=== PATIENT | female | born 1955 | race Caucasian/White ===

== ENCOUNTER → 2020-12-20 | Outpatient (CLI) | payer MEDICARE, SELFPAY | END | disposition home or self-care (01) | PROVIDERS: Visit Provider Nurse Practitioner | DX: L50.9 Urticaria, unspecified (principal); A46 Erysipelas | CPT/HCPCS: 87070; 87077; 87186; 87205 ==

== ENCOUNTER → 2023-09-17 | Outpatient (CLI) | payer MEDICARE, BC, SELFPAY ==
[2023-09-17 20:49] LABS: Absolute Lymphocyte Count 1.49 X10^3/uL (0.83-4.51); Absolute Neutrophil Count 5.9 X10^3/uL (2.0-7.7); Basophil# 0.05 X10^3/uL; Basophil% 0.6 % (0-1); Eosinophil# 0.15 X10^3/uL; Eosinophils% 1.8 % (0-5); Hematocrit 40.9 % (37-47); Lymphocyte # 1.49 X10^3/ul (0.83-4.51); Lymphocyte % 18.2 % (19-41); Mean Corp Hgb Conc 31.8 g/dL (32-36); Mean Corpuscular Hgb 29.8 pg (27.0-32.0); Mean Corpuscular Volume 93.8 fL (81-99); Mean Platelet Vol. 12.5 fl (6.2-12.0); Monocyte# 0.56 X10^3/uL; Monocyte% 6.9 % (0-10); NRBC Flagged by Analyzer 0 % (0-5); Neutrophil % 72.3 % (47-70); Platelet Count 228 K/mm3 (150-450); RBC Distribution Width CV 13.3 % (11.6-14.6); RBC Distribution Width SD 45.9 fl (35.1-43.9); Red Blood Count 4.36 M/mm3 (4.2-5.4); White Blood Count 8.2 K/mm3 (4.4-11.0)
[2023-09-17 21:05] LABS: ALB/GLOB Ratio 1.1 RATIO (0.9-2.4); AST(SGOT) 14 U/L (15-37); Alanine Aminotransfer ALT/SGPT 21 U/L (13-56); Albumin, Serum 3.9 g/dL (3.2-5.0); Alkaline Phosphatase 98 U/L (45-117); Anion Gap 5 (5-15); BUN 15 mg/dL (7-18); BUN/Creat Ratio 14.3 RATIO (10-20); Calcium,Total 9.9 mg/dL (8.5-10.1); Chloride 110 mmol/L (98-107); Creatinine, Serum 1.05 mg/dL (0.55-1.02); EST Glomerular Filtration Rate 55 mL/min (>60); Est Glom Filt Rate - Afr Amer 67 mL/min (>60); Globulin 3.4 g/dL (2.2-4.2); Glucose 130 mg/dL (74-106); Potassium 4.2 mmol/L (3.5-5.1); Protein, Total 7.3 g/dL (6.4-8.2); Sodium Level 141 mmol/L (136-145); Thyroid Stim Hormone (TSH) 1.37 uIU/mL (0.358-3.74)
[2023-09-19 14:10] LABS: Anti-Centromere B Ab <0.2 AI (0.0-0.9); Anti-Chromatin <0.2 AI (0.0-0.9); Anti-Jo <0.2 AI (0.0-0.9); Anti-Scleroderma-70 AB <0.2 AI (0.0-0.9); Anti-dsDNA Ab <1 IU/mL (0-9); RNP Ab <0.2 AI (0.0-0.9); SJOGREN'S Anti-SS-A test < 0.2 AI (0.0-0.9); SJOGREN'S Anti-SS-B test < 0.2 AI (0.0-0.9); Smith Ab <0.2 AI (0.0-0.9)
== END | disposition home or self-care (01) ==
PROVIDERS: Referring Provider Nurse Practitioner; Visit Provider Nurse Practitioner
DX: L93.2 Other local lupus erythematosus (principal); L29.9 Pruritus, unspecified; E03.9 Hypothyroidism, unspecified
CPT/HCPCS: 80053; 84443; 85025; 86225; 86235

== ENCOUNTER → 2024-12-30 | Outpatient (CLI) | payer MEDICARE, OTHER, SELFPAY ==
--- OUTSIDE RECORDS SUMMARY | 2024-12-30 22:28 | XMS RPT_ITS | CCD ---
Author Organization [facility] Care Team Providers Care Felt Hat Flanging Operator Name Role Phone ASHLEY LARSEN Admitting Unavail able EJ CARLSON Consulting Unavailable MELQUIADES CAI Attending Unavailable Tigre Hernandez Unavailable [phone] Pcp, No Primary Care Provider Unavailrodney Mendoza LITERACY TUTOR, Courtney Referring Unavailable Reji LITERACY TUTOR, Courtney Attending Unavailable Tigre Hernandez DO Unavailable DINORAH CHOW Attending Unavailable DINORAH CHOW Attending Unavailable DINORAH CHOW Attending Unavailable Unavailable Primary Care Provider UnavailLALIT Billings Attending Unavailable LALIT MEADE Attending Unavailable ALESSIA CARROLL Attending Unavailable LALIT MEADE Consulting Unavailable LALIT MEADE Attending Unavailable LALIT MEADE Attending Unavailable Allergies Allergy Classification Reported Allergen(s) Allergy Type Date of Onset Reaction(s) Facility (1 source) Cephalexin Drug Allergy 06-30-2023 [facility] Repository (1 source) Cephalexin Drug Allergy 06-30-2023 [facility] Medications Current Medications Medication Drug Class(es) Dates Sig (Normalized) Sig (Original) ibuprofen 200 mg oral tablet (6 sources) Nonsteroidal Anti-inflammatory Drug take 1 tablet by mouth every six hours as needed ibuprofen (MOTRIN) 200 mg tablet Take 200 mg by mouth every 6 hours as needed. Active tacrolimus 0.001 mg/mg topical ointment (1 source) Calcineurin Inhibitor Immunosuppressant Start: 07-27-2024 tacrolimus (Protopic) 0.1 % ointment Apply to affected areas BID. 60 g 11 07/27/2024 Active triamcinolone acetonide 1 mg/ml topical cream (1 source) Corticosteroid Start: 06-11-2024 triamcinolone (Kenalog) 0.1 % cream Indications: Stasis dermatitis APPLY TO AFFECTED AREAS TWICE DAILY UNTIL CLEAR 454.6 g 06/11/2024 Active Problems Active Problems Problem Classification Problem Date Documented Date Episodic/Chronic Allergic reactions (3 sources) Intrinsic (allergic) eczema; Translations: [Atopic dermatitis] Onset: 07-27-2024 Chronic Fracture of upper limb (20 sources) Closed fracture of upper end of humerus; Translations: [Closed fracture of distal end of radius] Onset: 07-23-2024 07-27-2024 Episodic Genitourinary symptoms and ill-defined conditions (8 sources) Incontinence; Translations: [Mixed incontinence] Onset: 09-18-2016 09-18-2016 Chronic Other diseases of veins and lymphatics (1 source) Stasis dermatitis; Translations: [Venous insufficiency (chronic) (peripheral)] 07-27-2024 Episodic Other inflammatory condition of skin (1 source) Other local lupus erythematosus; Translations: [Other local lupus erythematosus] Onset: 09-26-2023 Chronic Pathological fracture (3 sources) Pathological fracture due to osteoporosis; Translations: [Age-related osteoporosis with current pathological fracture, unspecified site, initial encounter for fracture] Onset: 07-27-2024 07-27-2024 Episodic Prolapse of female genital organs (8 sources) Third degree uterine prolapse; Translations: [Complete uterovaginal prolapse] Onset: 09-18-2016 09-18-2016 Chronic Unclassified (1 source) Finding of sensation of bladder; Translations: [Feeling of incomplete bladder emptying] Onset: 09-18-2016 09-18-2016 Past or Other Problems Problem Classification Problem Date Documented Da te Episodic/Chronic Conditions associated with dizziness or vertigo (10 sources) Dizziness; Translations: [Vertigo] Onset: 07-20-2018 07-22-2018 Episodic Genitourinary symptoms and ill-defined conditions (7 sources) Finding of sensation of bladder; Translations: [Feeling of incomplete bladder emptying] Onset: 09-18-2016 09-18-2016 Episodic Other diseases of veins and lymphatics (2 sources) Venous insufficiency (chronic) (peripheral); Translations: [Venous insufficiency (chronic) (peripheral)] Onset: 12-30-2023 Episodic Other gastrointestinal disorders (8 sources) Incontinence of feces; Translations: [Full incontinence of feces] Onset: 09-18-2016 09-18-2016 Episodic Varicose veins of lower extremity (2 sources) Varicose veins of bilateral lower extremities with other complications; Translations: [Varicose veins of bilateral lower extremities with other complications] Onset: 12-30-2023 Episodic Results Test Name Value Interpretation Reference Range Facility [facility] 10-05-2024 CNOV Office Visit (AGPOB1 ) -------- MERCEDEZ BARBA ([id number]) 1955 F Date Time Provider Department 10/05/24 1:15 PM LALIT MEADE AGPOB1 During your visit today, we recorded the following information about you: Respiration Weight Height 18/minute 74.8 kg 1.6 m Lalit Meade MD 10/05/2024 1:25 PM Signed Chief complaint: Follow-up right proximal humerus fracture and right distal radius fracture. History present illness: Patient returns today for follow-up regarding her right proximal humerus and distal radius fracture. Overall doing better. Both of these were treated conservatively. Has been doing therapy with her granddaughter. States her arm is feeling better. Becoming more active. For the patient's past medical history, past surgical history, medications, allergies, family history, social history, and review of systems please refer to medical history in chart. Physical exam: Patient is alert and oriented no acute distress. Answers questions appropriately has a normal affect. Examination of the right upper extremity shows improved pronation and supination and wrist flexion and extension. She can flex and extend all digits including thumb. Able to actively raise her shoulder up to approximately 100 degrees. Still with some stiffness with overhead activity. Minimal discomfort. Humeral shaft or proximal humerus move as a unit. Imaging: Please refer to the radiographic interpretation Assessment: #1 right proximal humerus fracture. #2 right distal radius fracture. Plan: At this time she is doing better. She continues to improve. She will continue to do her therapy at home. No activity restrictions. After discussion, I will see her back on an as-needed basis. If there is any questions or concerns in the future, she will contact the office. Her questions were answered. Allergies As of Date: 10/05/2024 (No Known Allergies) Date Reviewed: 10/05/2024 Reviewed by: Selma Palacios LPN - Fully Assessed Reason for Visit: Established Patient [175] Cmt: Radius Pain depending on movement Denies any new injuries/falls Follow Up [171] Cmt: Radius Pain depending on movement Denies any new injuries/falls Primary Visit Diagnosis:Other closed intra-articular fracture of distal end of right radius with routine healing, subsequent encounter [S52.169J] Other Visit Diagnosis:Other closed displaced fracture of proximal end of right humerus with routine healing, subsequent encounter [S49.084D] Order(s):XR WRIST GENERAL 3V PA/LAT/OBL RIGHT [[id number]] Order #: [id number] XR SHOULDER [id number] AP/TRUE AP RIGHT [[id number]] Order #: [id number] Prescriptions as of 10/05/2024 - ibuprofen (MOTRIN) 200 mg tablet Take 200 mg by mouth every 6 hours as needed. Problem List As Of Date 10/05/2024 Noted Resolved Feeling of incomplete bladder emptying [R39.14] 09/18/2016 Mixed incontinence [N39.46] 09/18/2016 Complete uterovaginal prolapse [N81.3] 09/18/2016 Incontinence of feces [R15.9] 09/18/2016 Vertigo [R42] 07/20/2018 Disposition: Return if symptoms worsen or fail to improve. Follow-up and Disposition History for Encounter Date Provider Department Center 10/05/2024 [id number] MEADE AGPOB1 [facility] Encounter Status:Closed by LALIT MEADE on 10/05/[address] [facility] No Panel Informationon 10-05 [facility] XR Shoulder - right 2 Viewso n 10-05-2024 AP scapular Y view r ight shoulder ordered and obtained in the office interpreted by myself. Stable appearing alignment right proximal humerus fracture. Proximal humerus appears healed. [facility] Radiology Study observation (narrative) [facility] XR Wrist - right PA and Late ral and Obliqueon 10-05-2024 AP, lateral, oblique view right wrist ordered and obtained in the office interpreted by myself. Stable alignment distal radius fracture. Small minor shortening on AP view. Neutral lateral view. [facility] Radiology Study observation (narrative) [facility] CNOVon 09-07-2024 CNOV Office Visit (AGPOB1 ) -------- MERCEDEZ BARBA ([id number]) 1955 F Date Time Provider Department 09/07/24 7:45 AM LALIT MEADE AGPOB1 During your visit today, we recorded the following information about you: Respiration Weight Height 18/minute 74.8 kg 1.6 m Lalit Meade MD 09/07/2024 8:16 AM Signed Chief complaint: Follow-up right distal radius and proximal humerus fracture. Patient presents: The patient returns today for follow-up regarding her right distal radius and proximal humerus fracture. These were treated conservatively. States she is slowly getting better. Still with stiffness and swelling right upper extremity. For the patient's past medical history, past surgical history, medications, allergies, family history, social history, and review of systems please refer to medical history in chart. Physical exam: The patient is alert and oriented no acute distress. Answers questions appropriately. Has a normal affect. Examination of right upper extremity shows swelling present in her wrist and hand. She can flex and extend all digits including thumb. Good capillary refill. Sensation to light touch intact. Able to range right elbow. Humeral shaft and proximal humerus move as a unit with minimal pain. Imaging: Please refer to the radiographic interpretation Assessment: #1 right intra-articular distal radius fracture. #2 right proximal humerus fracture. Plan: At this time we will get her into physical therapy. This will be gradual range of motion and strengthening. We discussed her swelling. She may discontinue sling and wrist brace. I will see her back in approximately 1 month. If there is any questions or concerns prior to the next encounter, she will contact the office. Questions answered. Will continue to monitor patient for Other closed intra-articular fracture of distal end of right radius with routine healing, subsequent encounter (primary encounter diagnosis) Other closed displaced fracture of proximal end of right humerus with routine healing, subsequent encounter, patient to schedule visit as per follow up discussed. Allergies As of Date: 09/07/2024 (No Known Allergies) Date Reviewed: 09/07/2024 Reviewed by: Chasidy Cooley Tech - Fully Assessed Reason for Visit: Established Patient [175] Established Patient [175] Primary Visit Diagnosis:Other closed intra-articular fracture of distal end of right radius with routine healing, subsequent encounter [S52.767A] Other Visit Diagnosis:Other closed displaced fracture of proximal end of right humerus with routine healing, subsequent encounter [S43.792H] Order(s):XR SHOULDER [id number] AP/TRUE AP RIGHT [[id number]] Order #: [id number] XR WRIST GENERAL 3V PA/LAT/OBL RIGHT [[id number]] Order #: [id number] CONSULT TO PHYSICAL THERAPY [9032] Order #: [id number]: 1 FUTURE Prescriptions as of 09/07/2024 - ibuprofen (MOTRIN) 200 mg tablet Take 200 mg by mouth every 6 hours as needed. Problem List As Of Date 09/07/2024 Noted Resolved Feeling of incomplete bladder emptying [R39.14] 09/18/2016 Mixed incontinence [N39.46] 09/18/2016 Complete uterovaginal prolapse [N81.3] 09/18/2016 Incontinence of feces [R15.9] 09/18/2016 Vertigo [R42] 07/20/2018 Disposition: Return in about 4 weeks (around 10/05/2024). Follow-up and Disposition History for Encounter Date Provider Department Center 09/07/2024 [id number] MEADE [address] Encounter Status:Closed by LALIT MEADE on 09/07/24 [facility] Serafin 09-07-2024 RAYMUNDON Telephone (AGPOB1) -------- MERCEDEZ BARBA ([id number]) 1955 F Date Time Provider Department 09/07/24 LALIT MEADE AGPOB1 During your visit today, we recorded the following information about you: Enid Farnsworth 09/07/2024 2:34 PM Addendum She forgot to ask you at the appointment today, can she start using her hot tub again? Enid Farnsworth September 07, 2024 1:40 PM Lalit Meade MD You5 minutes ago (2:27 PM) Yes Called and left a voicemail for the patient, letting her know the response to her question. Enid Montse September 07, 2024 2:34 PM Allergies As of Date: 09/07/2024 (No Known Allergies) Date Reviewed: 09/07/2024 Reviewed by: Chasidy Cooley Tech - Fully Assessed Reason for Visit: Patient Question [2127] Prescriptions as of 09/07/2024 - ibuprofen (MOTRIN) 200 mg tablet Take 200 mg by mouth every 6 hours as needed. Problem List As Of Date 09/07/2024 Noted Resolved Feeling of incomplete bladder emptying [R39.14] 09/18/2016 Mixed incontinence [N39.46] 09/18/2016 Complete uterovaginal prolapse [N81.3] 09/18/2016 Incontinence of feces [R15.9] 09/18/2016 Vertigo [R42] 07/20/2018 Encounter Status:Closed by MONTSE ENID on 09/07/[address] [facility] No Panel Informationon 09-07 [facility] XR Shoulder - right 2 Viewso n 09-07-2024 AP and scapular Y vi ew right shoulder ordered and obtained in the office interpreted by myself. Right proximal humerus fracture with callus formation present. Satisfactory alignment. [facility] Radiology Study observation (narrative) [facility] XR Wrist - right PA and Late ral and Obliqueon 09-07-2024 AP, lateral, oblique views right wrist ordered obtained in the office interpreted by myself. Healing right distal radius fracture. Alignment satisfactory. [facility] Radiology Study observation (narrative) [facility] CNOVon 08-17-2024 CNOV Office Visit (AGPOB1 ) -------- MERCEDEZ BARBA ([id number]) 1955 F Date Time Provider Department 08/17/24 2:45 PM LALIT MEADE AGPOB1 During your visit today, we recorded the following information about you: Respiration Weight Height 18/minute 74.8 kg 1.6 m Lalit Meade MD 08/17/2024 3:24 PM Signed Chief complaint: Follow-up right wrist and proximal humerus. History of present illness: Patient returns today following her right proximal humerus and distal radius fracture. Both being treated conservatively. She has been in a cast. She is almost 4 weeks from her injury. Having more soreness in her right shoulder. For the patient's past medical history, past surgical history, medications, allergies, family history, social history, and review of systems please refer to medical history in chart. Physical exam: The patient is alert and oriented no acute distress. Answers questions appropriately. Has a normal affect. Examination right upper extremity shows it to be neurovasc intact. She is able to flex and extend all digits including thumb. Able to range right elbow. Humeral shaft and proximal humerus move as a unit. No open wounds. Imaging: Please refer to the radiographic interpretation Assessment: #1 right proximal humerus fracture. #2 right intra-articular distal radius fracture. Plan at this time she is doing well. We will place her in a wrist cock up brace. She is to wear this majority of the time. We discussed gentle pendulum exercises as well as elbow range of motion exercises. I will see her back in 3 weeks for repeat evaluation. We did discuss osteoporosis. She states she was not interested in scheduling for this at this time. She will continue with her vitamin D supplementation. I will see her back in 3 weeks. If is any questions or concerns prior to the next encounter, she will contact the office. Questions answered. Will continue to monitor patient for Other closed intra-articular fracture of distal end of right radius with routine healing, subsequent encounter (primary encounter diagnosis) Other closed displaced fracture of proximal end of right humerus with routine healing, subsequent encounter, patient to schedule visit as per follow up discussed. Geremias Barnhart Tech 08/17/2024 3:28 PM Signed Pt. Fit for wrist cockup brace on right and instructed on its use. Vishnu Silva Allergies As of Date: 08/17/2024 (No Known Allergies) Date Reviewed: 08/17/2024 Reviewed by: Hermelindo Olvera Tech - Fully Assessed Reason for Visit: Established Patient [175] Pain [78] Primary Visit Diagnosis:Other closed intra-articular fracture of distal end of right radius with routine healing, subsequent encounter [S52.072Z] Other Visit Diagnosis:Other closed displaced fracture of proximal end of right humerus with routine healing, subsequent encounter [S42.061D] Order(s):XR WRIST GENERAL 3V PA/LAT/OBL RIGHT [[id number]] Order #: [id number] XR SHOULDER [id number] AP/TRUE AP RIGHT [[id number]] Order #: [id number] Prescriptions as of 08/17/2024 - ibuprofen (MOTRIN) 200 mg tablet Take 200 mg by mouth every 6 hours as needed. Problem List As Of Date 08/17/2024 Noted Resolved Feeling of incomplete bladder emptying [R39.14] 09/18/2016 Mixed incontinence [N39.46] 09/18/2016 Complete uterovaginal prolapse [N81.3] 09/18/2016 Incontinence of feces [R15.9] 09/18/2016 Vertigo [R42] 07/20/2018 Disposition: Return in about 3 weeks (around 09/07/2024). Follow-up and Disposition History for Encounter Date Provider Department Center 08/17/2024 [id number] MEADE AGPOB1 [facility] Encounter Status:Closed by LALIT MEADE on 08/17/[address] [facility] No Panel Informationon 08-17 [facility] XR Shoulder - right 2 Viewso n 08-17-2024 AP and scapular Y vi ew right shoulder ordered and obtained in the office interpreted by myself. Stable alignment right proximal humerus fracture. [facility] Radiology Study observation (narrative) [facility] XR Wrist - right PA and Late ral and Obliqueon 08-17-2024 AP, lateral, oblique views right wrist ordered obtained in the office interpreted by myself. Stable alignment intra-articular distal radius fracture. [facility] Radiology Study observation (narrative) [facility] Serafin 08-04-2024 CNPN Telephone (AGENDOG) -------- MERCEDEZ BARBA ([id number]) 1955 F Date Time Provider Department 08/04/24 SHIMA EATON AGEZAIN During your visit today, we recorded the following information about you: Symone Bain 08/04/2024 1:53 PM Signed LVM to schedule pt for osteoporosis referral for Shima Eaton CNP. Schedule from the workque if pt calls back. Symone Bain August 04, 2024 1:53 PM Symone Bain 08/09/2024 10:17 AM Signed Pt not interested in scheduling for osteoporosis. Symone Bain August 09, 2024 10:17 AM Allergies As of Date: 08/04/2024 (No Known Allergies) Date Reviewed: 07/27/2024 Reviewed by: Risa Meza LPN - Fully Assessed Reason for Visit: Appointment [186] Cmt: Osteoporosis referral Prescriptions as of 08/09/2024 - ibuprofen (MOTRIN) 200 mg tablet Take 200 mg by mouth every 6 hours as needed. Problem List As Of Date 08/04/2024 Noted Resolved Feeling of incomplete bladder emptying [R39.14] 09/18/2016 Mixed incontinence [N39.46] 09/18/2016 Complete uterovaginal prolapse [N81.3] 09/18/2016 Incontinence of feces [R15.9] 09/18/2016 Vertigo [R42] 07/20/2018 Encounter Status:Closed by SYMONE BAIN on 08/09/24 [facility] 07-27-2024 CNOV Office Visit (AGPOB1 ) -------- MERCEDEZ BARBA ([id number]) 1955 F Date Time Provider Department 07/27/24 2:15 PM LALIT MEADE AGPOB1 During your visit today, we recorded the following information about you: Respiration Weight Height 16/minute 74.8 kg 1.6 m Lalit Meade MD 07/27/2024 2:30 PM Signed Chief complaint: Right wrist and shoulder pain. History of present illness: The patient is a 69-year-old [id number] female who comes in today after sustaining a fall while trimming her rosebushes. She states she was standing on a retaining wall and fell backwards. She struck her wrist and shoulder. Went to the emergency department found to have a distal radius fracture as well as proximal humerus fracture. She was placed in a splint as well as a sling. She presents today for evaluation and management. Denies any other significant injuries. For the patient's past medical history, past surgical history, medications, allergies, family history, social history, and review of systems please refer to medical history in chart. Physical exam: The patient is alert and oriented no acute distress. Answers questions appropriate. Has a normal affect. Examination of right upper extremity shows it to be neurovascularly intact. She can flex and extend all digits including thumb. Swelling and ecchymosis present upper arm. Swelling present distally. No open wounds. Compartments soft and compressible. No tenderness to palpation about the elbow. Imaging: Please refer to the radiographic interpretation Assessment: #1 right intra-articular distal radius fracture. #2 right proximal humerus fracture. Plan: At this time we will treat both of these injuries conservatively. Sling to right upper extremity for her shoulder. We will place her in a short arm cast. We discussed the usage of vitamin D. I will place a referral to the osteoporosis center. We discussed elbow and digital range of motion. I will see her back in 3 weeks for repeat evaluation and removal of her cast. If there is any questions or concerns prior to the next encounter, they will contact the office. Questions answered. Will continue to monitor patient for Other closed displaced fracture of proximal end of right humerus, initial encounter (primary encounter diagnosis) Other closed intra-articular fracture of distal end of right radius, initial encounter, patient to schedule visit as per follow up discussed. Carri Carrion MA 07/27/2024 2:45 PM Signed PT ASSESSMENT - CASTING ROOM Mercedez presents for Application of cast. Applied/Re-applied Short Arm Cast to Right arm Patient has been instructed in The patient and/or family member have been instructed in the following: Do not get cast wet, or place/stick anything inside the cast. Care of cast.. Patient is in extreme pain during application of cast. Patient to keep follow up appointment as scheduled. Carri Carrion MA Allergies As of Date: 07/27/2024 (No Known Allergies) Date Reviewed: 07/27/2024 Reviewed by: Risa Meza LPN - Fully Assessed Reason for Visit: New [908514] Cmt: Having some pain and swelling, certain movements cause a sharp pain. Pain [78] Cmt: Having some pain and swelling, certain movements cause a sharp pain. Fracture [4131] Cmt: Having some pain and swelling, certain movements cause a sharp pain. ER F/U [41] Cmt: Having some pain and swelling, certain movements cause a sharp pain. Swelling [205] Cmt: Having some pain and swelling, certain movements cause a sharp pain. Primary Visit Diagnosis:Other closed displaced fracture of proximal end of right humerus, initial encounter [S42.291A] Other Visit Diagnoses:Other closed intra-articular fracture of distal end of right radius, initial encounter [S52.571A] Age-related osteoporosis with current pathological fracture, initial encounter [M80.00XA] Order(s):XR SHOULDER [id number] AP/TRUE AP RIGHT [[id number]] Order #: [id number] XR WRIST GENERAL 3V PA/LAT/OBL RIGHT [[id number]] Order #: [id number] CONSULT TO ENDOCRINOLOGY [9007] Order #: [id number]: 1 FUTURE Prescriptions as of 07/27/2024 - ibuprofen (MOTRIN) 200 mg tablet Take 200 mg by mouth every 6 hours as needed. Problem List As Of Date 07/27/2024 Noted Resolved Feeling of incomplete bladder emptying [R39.14] 09/18/2016 Mixed incontinence [N39.46] 09/18/2016 Complete uterovaginal prolapse [N81.3] 09/18/2016 Incontinence of feces [R15.9] 09/18/2016 Vertigo [R42] 07/20/2018 Disposition: Return in about 3 weeks (around 08/17/2024). Follow-up and Disposition History for Encounter Date Provider Department Center 07/27/2024 [id number], WILLIAM Shahid AGPOB1 [facility] Encounter Status:Closed by LALIT MEADE on 07/27/24 [facility] No Panel Informationon 07-27 [facility] Office Visiton 07-27-2024 Follow-up visit [id number] Mercedez Barba 1955 F Date Provider Department Center 07/27/2024 [id number]-PZVCDINORAH FELICIANO [facility] [place] None No family history on file Level of Service:08951 ME OFFICE/OUTPATIENT ESTABLISHED MOD MDM 30 MIN Reason for Visit and Comments: Follow-up [959182] - SANTOS-02/24/2024MINGO [facility] [facility] 07-27-2024 Progress Note DATE OF SERVICE: 07/27/2024 PATIENT NAME: Mercedez Barba : 1955 AGE: 69 y.o. CLINIC NUMBER: [id number] Visit type: Established patient Chief Complaint Patient presents with Follow-up [facility]-02/24/2024,[place] Subjective HISTORY OF PRESENT ILLNESS: This is a 69 y.o. female who presents for a follow up of intrinsic atopic dermatitis and stasis dermatitis/varicose veins. She has been wearing compression stockings regularly and this has helped immensely; last seen 02/24/2024. Patient recently fractured her right arm in a fall, but thankfully she does not need surgery. F/u- intrinsic Atopic dermatitis Admits flaring since last visit. Currently treating with: -triamcinolone 0.1% ointment Denies current flares Denies redness, flaking, scaling, and bleeding. Denies fissures and blisters. Denies itching, burning, pain. C/o-rash located on the top of legs, back and face x 2 months. She has a history of eczema since she was a child. Patient states the rash is new. Patient reports previously her face blistered like a cold core Admits itching Admits spreading to back and face, started on top of thigh. Denies new personal products. Denies new medications/supplements or changes in medications/supplements size, shape, color. Denies recent illness/fever. Denies anyone in the same house with similar rash. Admits previous treatment. -triamcinolone, gold cisneros cerave. Patient reports triamcinolone didn't help Currently using kirks soap wash, gold cisneros lotion and all free and clear. laundry detergent. Cerave helps a little F/u-stasis derm/varicose veins to both legs Improved since last visit. Currently treating with: -triamcinolone 0.1% ointment -compression stockings Denies flares, significantly improved History of pacemaker/ defibrillator? No History of HIV/ Hep C? No Allergies to Lidocaine, Epinephrine, Latex or Adhesive? No Review of Systems Orders Placed This Encounter Medications tacrolimus (Protopic) 0.1 % ointment Sig: Apply to affected areas BID. Dispense: 60 g Refill: 11 Vitals: 07/27/24 1146 BP: 119/76 Pulse: 77 Temp: 36.3 ?C (97.4 ?F) PHYSICAL EXAM GENERAL APPEARANCE: alert & oriented x3, pleasant. Well developed, well nourished. PSYCH: appropriate mood and affect DERMATOLOGY: (all measurements are in cm, unless otherwise noted) 1. Intrinsic atopic dermatitis Head - Anterior (Face), Left Thigh - Anterior Red, scaly patches [x]Chronic []Acute []Stable [x]Flaring/Exacerbation Educated and reassured. Treatment options, risks, benefits, and expectations reviewed. Start: - Tacrolimus 0.1% ointment- Apply topically BID Pt. Advised that sunlight is therapeutic for eczema and was advised to sit in the sun for 10-20 minutes daily, weather-permitting 2. Stasis dermatitis Left Lower Leg - Anterior, Right Lower Leg - Anterior Shins are clear, previous rash has resolved [x]Chronic []Acute [x]Stable []Flaring/Exacerbation - Educated and reassured. Treatment options, risks, benefits, and expectations reviewed. Significantly improved. Continue regular use of compression stockings Continue: - Triamcinolone 0.1% cream- Apply to affected areas BID prn itching/rash. Pt. Advised to apply a fragrance-free moisturizer to the affected areas bid. Risks associated with residential topical steroid use reviewed in detail. Patient was advised that topical steroid is being used for short term relief and not as maintenance. Overuse of topical steroids can result in permanent skin thinning/atrophy, skin discoloration, unwanted hair growth, acne and/or stretch kee/striae. Related Medications triamcinolone (Kenalog) 0.1 % cream APPLY TO AFFECTED AREAS TWICE DAILY UNTIL CLEAR Follow up in about 6 months (around 01/26/2025) for Eczema f/u. Dinorah Chow MD 07/27/24 8:16 AM REFERRING MD: [facility] XR Shoulder - right 2 Viewso n 07-27-2024 AP and scapular Y vi ew right shoulder ordered and obtained in the office interpreted by myself. Right proximal humerus fracture present. Slight apex anterior on the scapular Y view. Satisfactory alignment. [facility] RADIOLOGY Radiology Study observation (narrative) [facility] XR Wrist - right PA and Late ral and Obliqueon 07-27-2024 AP, lateral, oblique views right wrist ordered and obtained in the office interpreted by myself. Intra-articular distal radius fracture right wrist. Satisfactory alignment. Impaction present. [facility] RADIOLOGY Radiology Study observation (narrative) [facility] CNPNon 07-26-2024 CNPN Telephone (AGPOB1) -------- MERCEDEZ BARBA ([id number]) 1955 F Date Time Provider Department 07/26/24 LALIT MEADE AGPOB1 During your visit today, we recorded the following information about you: Enid Farnsworth 07/26/2024 8:40 AM Signed Left message for patient to call office to schedule an appointment. Office number provided for return call. Enid Farnsworth July 26, 2024 8:40 AM Allergies As of Date: 07/26/2024 (No Known Allergies) Date Reviewed: 07/23/2024 Reviewed by: David Hernandez RN - Fully Assessed Reason for Visit: Appointment [186] Problem List As Of Date 07/26/2024 Noted Resolved Feeling of incomplete bladder emptying [R39.14] 09/18/2016 Mixed incontinence [N39.46] 09/18/2016 Complete uterovaginal prolapse [N81.3] 09/18/2016 Incontinence of feces [R15.9] 09/18/2016 Vertigo [R42] 07/20/2018 Encounter Status:Closed by ENID FARNSWORTH on 07/26/24 [facility] ALLIED HEALTHon 07-24-2024 ALLIED HEALTH HNO ID: [id number] Author: DANYEL KAUR Tech Service: ? Author Type: Technologist Type: Allied Health Filed: 07/24/2024 00:09 Note Text: Radiology Service Progress Note PATIENT NAME: Mercedez Barba DATE OF SERVICE: July 24, 2024 TIME: 12:09 AM PATIENT IDENTITY VERIFICATION COMPLETED USING TWO (2) IDENTIFIERS: Name and Date of confirmed by patient verbally and Name and Date of confirmed by identification band. FALL SCREENING: Has the patient had 2 falls in the last year or 1 fall with injury or currently using an Ambulatory Assistive Device (Walker, Cane, Wheelchair, Crutches, etc.)? Emergency Room Patient: Screened in ED PATIENT GENDER DATA: Assigned female at . status: : No status: NO. PATIENT RELEVANT IMPLANT DATA REVIEWED: Yes PATIENT PRESENTS WITH AN IMPLANTABLE OR ATTACHED AMMUNITION ASSEMBLY II LABORER: No RADIOLOGY DEPARTMENT: CT; Exam(s) Completed: Brain and Spine PERIPHERAL IV DATA: Not applicable SIGNED BY: Vishnu Suarez July 24, 2024 12:09 AM [facility] CONSULTon 07-24-2024 CONSULT HNO ID: [id number] Author: LALIT MEADE MD Service: Orthopaedic Surgery Author Type: Resident Type: Consults Filed: 07/24/2024 09:09 Note Text: -------- Attestation signed by Lalit Meade MD at 07/24/2024 9:09 AM Agree -------- Orthopaedic Surgery Consultation Note Reason for Consultation: Right arm pain Consulting Physician: Dr. Deshaun MD Date: July 24, 2024 Time: 3:58 AM History of Present Illness 69 year old female being evaluated today regarding her right upper extremity after a fall. Patient states she fell backwards about 3 feet off a retaining wall directly onto her right upper extremity with immediate onset pain in her right shoulder and wrist and inability to use her right arm due to the pain. She is right-hand dominant. She endorses minor numbness globally about the hand. She denies any other injuries. She did not hit her head or lose consciousness and she does not use a blood thinner. X-rays in the ED demonstrated a right proximal humerus fracture as well as a right distal radius fracture. Review of Systems 10-point ROS negative except as in HPI. History PAST MEDICAL HISTORY Diagnosis Date History of blood clots UTI (urinary tract infection) PAST SURGICAL HISTORY Procedure Laterality Date HYSTERECTOMY HX Depression Screening Never done Anxiety Screening Never done Hepatitis C Screening Never done DTaP,Tdap,Td Vaccine(1 - Tdap) Never done Mammogram Screening Never done Lipid Screening Never done Colorectal Cancer Screening Never done Shingrix Vaccine(1 of 2) Never done Pneumococcal Vaccine: 50+(1 of 1 - PCV) Never done Bone Density Screening Never done Influenza Vaccine(1) due on 12/07/2023 Covid-19 Vaccine( - 2023-25 season) Never done Advance Directive Discussion Never done Diabetes Screening due on 07/24/2027 RSV Vaccine(1 - 1-dose 75+ series) due on 2030 A review of the patient's history was completed and is otherwise non-contributory to the patient's presenting condition. Medications No prescriptions on file. Allergies Patient has no known allergies. Family History No family history on file. Social History Employer And Job Title: None on file Years Of Education Completed: Not specified Marital Status: Social History Tobacco Use Smoking status: Never Substance Use Topics Alcohol use: Yes Drug use: No Physical Examination Vitals BP 108/54 Pulse 82 Temp 36.6 ?C (97.9 ?F) (Oral) Resp 19 Ht 160 cm (5' 3") Wt 81.6 kg (180 lb) SpO2 (!) 94% BMI 31.89 kg/m? General AANDO. NAD. Cooperative throughout entire interview. Appropriate mood and affect. Right upper extremity Slight deformity to the right shoulder with associated ecchymoses and swelling. Mild swelling about the right wrist. No open wounds or lacerations. Compartments soft and compressible. TTP about the right shoulder and wrist SILT Ax/M/U/R. Motor intact Ax/AIN/PIN/U. R/U pulses palpable; BCR all digits. Physical examination otherwise non-contributory to consultation. Labs Recent Labs 07/24/24 0119 07/23/24 2324 NA -- 140 K 4.1 -- CHLOR -- 112* CO2 -- 18* BUN -- 9 CREAT -- 0.67 GLUC -- 149* ANION -- 10 CA -- 8.0* WBC -- 9.39 HB -- 12.8 HCT -- 39.0 PLT -- 144* Imaging X-rays of the right hand, wrist, elbow, shoulder were obtained, reviewed, and interpreted. Images show a nondisplaced intra-articular distal radius fracture with associated ulnar styloid fracture. There is also a comminuted displaced proximal humerus fracture. The shoulder does not appear to be dislocated. Procedure(s) Volar dorsal splint applied to right wrist with interosseous mold. No true reduction maneuver necessary. Sling then applied to right upper extremity. Patient tolerated the procedure well with no complications. Assessment Mercedez Barba is a 69 year old female with a right displaced proximal humerus fracture and a right nondisplaced intra-articular distal radius fracture Plan Management per ED Pain control Weight-bearing status: NWB RUE Antibiotic(s): None Diet: Okay for regular diet from Ortho perspective Dressing(s): Maintain volar dorsal splint to right wrist and sling to right upper extremity clean and dry DVT ppx: Per ED Imaging: Reviewed above No acute orthopedic surgical intervention warranted at this time for either fracture. Patient can follow-up with Dr. Meade in office within the week for further evaluation of her right proximal humerus and right distal radius fractures Disposition: Per ED Discussed with Dr. Meade who agrees with the above recommendations. Wilner Torres MD Orthopaedic Surgery - PGY 1 3:58 AM 07/24/2024 Pager #[phone] [facility] CT BRAIN WO IVCONon 07-25-19 CT BRAIN WO IVCON * * *Final Report* * * DATE OF EXAM: Jul 24 2024 12:12AM [facility] 0504 - CT BRAIN WO IVCON / PROCEDURE REASON: Head trauma, minor (Age >= 65y) * * * * Physician Interpretation * * * * EXAMINATION: CT BRAIN WO IVCON, CT CERVICAL SPINE WO IVCON CLINICAL HISTORY: Fall, pain TECHNIQUE: CTs of the head and cervical spine were performed without intravenous contrast. 2-D planar reformats were acquired. CT Dose-Length Product (DLP): 1252 mGy*cm CT Dose Reduction Employed: Automated exposure control(AEC) and iterative recon COMPARISON: 07/20/2018. FINDINGS: CT HEAD: No acute infarct. No acute intracranial hemorrhage. No hydrocephalus. No mass effect, or midline shift. Patent basilar cisterns. White matter appears unremarkable. The parenchymal volume is within normal limits. Major intracranial vasculature is unremarkable. The paranasal sinuses are relatively well-pneumatized. The orbits are unremarkable. The tympanomastoid cavities are clear. The calvarium and extracranial soft tissues are intact. CT CERVICAL SPINE: No acute cervical spine fracture or traumatic malalignment. Disc and vertebral body heights are relatively well-maintained. Soft tissues of the neck and lung apices are relatively unremarkable. Partially imaged comminuted fracture of the right humeral neck. IMPRESSION: HEAD: No acute intracranial abnormality. CERVICAL SPINE: 1. No acute cervical spine fracture or traumatic malalignment. 2. Partially imaged right proximal humeral fracture. Knitter Machine: PSCB Transcribe Date/Time: Jul 24 2024 1:23A Dictated by : JOSSE HOFFMANN MD This examination was interpreted and the report reviewed and electronically signed by: JOSSE HOFFMANN MD on Jul 24 2024 1:30AM EST [id number] [facility] CT CERVICAL SPINE WO IVCONon 07-24-2024 CT CERVICAL SPINE WO IVCON * * *Final Report* * * DATE OF EXAM: Jul 24 2024 12:12AM [facility] 0505 - CT CERVICAL SPINE WO IVCON / PROCEDURE REASON: Neck trauma (Age >= 65y) * * * * Physician Interpretation * * * * EXAMINATION: CT BRAIN WO IVCON, CT CERVICAL SPINE WO IVCON CLINICAL HISTORY: Fall, pain TECHNIQUE: CTs of the head and cervical spine were performed without intravenous contrast. 2-D planar reformats were acquired. CT Dose-Length Product (DLP): 1252 mGy*cm CT Dose Reduction Employed: Automated exposure control(AEC) and iterative recon COMPARISON: 07/20/2018. FINDINGS: CT HEAD: No acute infarct. No acute intracranial hemorrhage. No hydrocephalus. No mass effect, or midline shift. Patent basilar cisterns. White matter appears unremarkable. The parenchymal volume is within normal limits. Major intracranial vasculature is unremarkable. The paranasal sinuses are relatively well-pneumatized. The orbits are unremarkable. The tympanomastoid cavities are clear. The calvarium and extracranial soft tissues are intact. CT CERVICAL SPINE: No acute cervical spine fracture or traumatic malalignment. Disc and vertebral body heights are relatively well-maintained. Soft tissues of the neck and lung apices are relatively unremarkable. Partially imaged comminuted fracture of the right humeral neck. IMPRESSION: HEAD: No acute intracranial abnormality. CERVICAL SPINE: 1. No acute cervical spine fracture or traumatic malalignment. 2. Partially imaged right proximal humeral fracture. Knitter Machine: OSCAR Transcribe Date/Time: Jul 24 2024 1:23A Dictated by : JSOSE HOFFMANN MD This examination was interpreted and the report reviewed and electronically signed by: JOSSE HOFFMANN MD on Jul 24 2024 1:30AM EST [id number] [facility] ED NOTEon 07-24-2024 ED NOTE HNO ID: [id number] Author: DAVID HERNANDEZ RN Service: ? Author Type: Registered Nurse Type: ED Notes Filed: 07/24/2024 01:44 Note Text: Xray called. Message left [facility] ED NOTE HNO ID: [id number] Author: BERTHA MANZANO RN Service: Family Practice Author Type: Registered Nurse Type: ED Notes Filed: 07/24/2024 01:21 Note Text: Temporary assistance with care. [facility] ED PROV NOTEon 07-24-2024 ED PROV NOTE HNO ID: [id number] Author: ALESSIA CARROLL DO Service: Emergency Medicine Author Type: Physician Type: ED Provider Notes Filed: 08/07/2024 06:31 Note Text: I saw and evaluated the patient. Discussed with the resident and agree with resident's findings and plan as documented in the resident's note. She was trimming sadiq bushes on a retaining wall and she stepped backwards and fell off the retaining wall onto her right side. She did not hit her head or back. She hit her right elbow, wrist and shoulder. She believes her tetanus is UTD and she does not need one. She denies neck or back pain. No abdominal pain. No dizziness prior to the fall. No CP, SOB, abdominal pain, nausea or vomiting. No pain in the lower extremities or the left upper arm. She has not seen an orthopedic doctor in the past. She is right hand dominant. Her pain is currently a 7/10 and she was offered more medication and agreed. General appearance elderly female lying supine she is pleasant and conversant. She is accompanied by her 2 sons at the bedside. HEENT head is normocephalic atraumatic pupils are equal round reactive to light extraocular muscles are intact midface is stable dentition is intact neck has no midline tenderness step-offs or deformities. Cardiovascular heart is regular rate rhythm without murmurs gallops or rubs. Lungs clear to auscultation bilaterally without wheeze rales or rhonchi. Chest wall no tenderness. Abdomen is soft nontender nondistended normal active bowel sounds no rebound rigidity or guarding. Extremities she has tenderness and limited range of motion of the right shoulder secondary to pain. She is able to flex and extend at the elbow and pronate and supinate without any pain or discomfort. She is tenderness to palpation of the distal wrist and proximal hand with some swelling and bruising noted. She has equal radial pulses. Sensation light touch is intact and normal cap refill in both hands. She has equal hostess host strength. Neurologic alert awake answers questions appropriately cranial nerves grossly intact no focal deficits. Psychiatric patient is calm and cooperative with a normal affect. Back no midline tenderness step-offs or deformities to thoracic or lumbar spine. Pelvis stable without tenderness to palpation or rocking. ED course patient was seen and evaluated in the ED by myself as well as the resident. Basic labs were sent and are unremarkable other than a glucose of 149. I did a preliminary read orthopedics is consulted. Final reports from radiology are currently pending. The care plan was reviewed with the patient of her x-rays noticed humerus wrist possible wrist and hand abnormalities. Discussed with her sons at the bedside she was medicated for pain and all of her questions were answered. Shared decision making was utilized. We will await recommendations from orthopedics. ALESSIA CARROLL 08/07/[address] [facility] POTASSIUMon 07-24-2024 Potassium [Moles/Vol] 4.1 mmol/L Normal 3.7-5.1 [facility] Comment on above: Order Comment: Speci men Type: BLOOD SPECIMENOrdering Facility: [facility] Address: [address] [place] [address] Performed By: #### K 1 ####[facility] LABORATORYCLIA [id number] [place], [place] [id number] [place] [address] [place] XR ELBOW 3V AP/LAT/OTHER RTo n 07-24-2024 XR ELBOW 3V AP/LAT/OTHER RT * * *Final Report* * * DATE OF EXAM: Jul 24 2024 12:05AM [id number] [id number] - XR ELBOW 3V AP/LAT/OTHER RT / PROCEDURE REASON: Elbow trauma, no prior imaging * * * * Physician Interpretation * * * * EXAMINATION: XR SHLDR >/=3V AP/MALU AP/OTHR RT, XR WRIST 4V PA/LAT/OBL/SCAPH RT, XR ELBOW 3V AP/LAT/OTHER RT HISTORY: trauma right shoulder (accession [id number]), trauma right wrist (accession [id number]), trauma elbow right t (accession [id number]) Trauma. TECHNIQUE: XR SHLDR >/=3V AP/MALU AP/OTHR RT, XR WRIST 4V PA/LAT/OBL/SCAPH RT, XR ELBOW 3V AP/LAT/OTHER RT Laterality: RIGHT Number of different views (projections): 3 (accession [id number]), 4 (accession [id number]), 3 (accession [id number]) M: XB_1 COMPARISON: None. RESULT: Right shoulder: Bones are diffusely demineralized. Acute comminuted fracture of the surgical neck of the right humerus with extension into the greater tuberosity. Mild impaction. No other fracture or traumatic malalignment identified. Right elbow: Suboptimal positioning. Bones are diffusely demineralized. No acute fracture or traumatic malalignment identified. Evaluation for a joint effusion is suboptimal due to positioning. Right wrist: Bones are diffusely demineralized. Acute impacted and intra-articular fracture of the right distal radial metaphysis. Minimally displaced ulnar styloid fracture. Dorsal soft tissue swelling. IMPRESSION: * Acute comminuted fracture of the right proximal humerus. * Acute impacted and intra-articular fracture of the right distal radial metaphysis. * Minimally displaced ulnar styloid fracture. * No acute osseous abnormality of the right elbow identified. Knitter Machine: [facility] Transcribe Date/Time: Jul 24 2024 1:03A Dictated by : ELMO GAMEZ MD This examination was interpreted and the report reviewed and electronically signed by: ELMO GAMEZ MD on Jul 24 2024 1:10AM EST [id number] [facility] XR HAND 3V PA/LAT/OBL RTon 0 07-24-2024 XR HAND 3V PA/LAT/OBL RT * * *Final Report* * * DATE OF EXAM: Jul 24 2024 2:13AM [id number] [id number] - XR HAND 3V PA/LAT/OBL RT / PROCEDURE REASON: Trauma * * * * Physician Interpretation * * * * HISTORY: Trauma TECHNIQUE: XR HAND 3V PA/LAT/OBL RT FINDINGS/ IMPRESSION: Comminuted, nondisplaced distal radial fracture with extension to the radiocarpal articular surface. Ulnar styloid process avulsion fracture. Knitter Machine: [facility] Transcribe Date/Time: Jul 24 2024 3:47A Dictated by : ЮЛИЯ ESTRELLA MD This examination was interpreted and the report reviewed and electronically signed by: ЮЛИЯ ESTRELLA MD on Jul 24 2024 3:50AM EST [id number] [facility] XR SHLDR >/=3V AP/MALU AP/OTH R RTon 07-24-2024 XR SHLDR >/=3V AP/MALU AP/OTHR RT * * *Final Report* * * DATE OF EXAM: Jul 24 2024 12:05AM [facility] 5253 - XR SHLDR >/=3V AP/MALU AP/OTHR RT / PROCEDURE REASON: Trauma * * * * Physician Interpretation * * * * EXAMINATION: XR SHLDR >/=3V AP/MALU AP/OTHR RT, XR WRIST 4V PA/LAT/OBL/SCAPH RT, XR ELBOW 3V AP/LAT/OTHER RT HISTORY: trauma right shoulder (accession [id number]), trauma right wrist (accession [id number]), trauma elbow right t (accession [id number]) Trauma. TECHNIQUE: XR SHLDR >/=3V AP/MALU AP/OTHR RT, XR WRIST 4V PA/LAT/OBL/SCAPH RT, XR ELBOW 3V AP/LAT/OTHER RT Laterality: RIGHT Number of different views (projections): 3 (accession [id number]), 4 (accession [id number]), 3 (accession [id number]) M: XB_1 COMPARISON: None. RESULT: Right shoulder: Bones are diffusely demineralized. Acute comminuted fracture of the surgical neck of the right humerus with extension into the greater tuberosity. Mild impaction. No other fracture or traumatic malalignment identified. Right elbow: Suboptimal positioning. Bones are diffusely demineralized. No acute fracture or traumatic malalignment identified. Evaluation for a joint effusion is suboptimal due to positioning. Right wrist: Bones are diffusely demineralized. Acute impacted and intra-articular fracture of the right distal radial metaphysis. Minimally displaced ulnar styloid fracture. Dorsal soft tissue swelling. IMPRESSION: * Acute comminuted fracture of the right proximal humerus. * Acute impacted and intra-articular fracture of the right distal radial metaphysis. * Minimally displaced ulnar styloid fracture. * No acute osseous abnormality of the right elbow identified. Knitter Machine: PSC[employer] Transcribe Date/Time: Jul 24 2024 1:03A Dictated by : ELMO GAMEZ MD This examination was interpreted and the report reviewed and electronically signed by: ELMO GAMEZ MD on Jul 24 2024 1:10AM EST [id number] [facility] XR WRIST 4V PA/LAT/OBL/SCAPH RTon 04-19-2025 XR WRIST 4V PA/LAT/OBL/SCAPH RT * * *Final Report* * * DATE OF EXAM: Jul 24 2024 12:05AM [facility] 5273 - XR WRIST 4V PA/LAT/OBL/SCAPH RT / PROCEDURE REASON: Trauma * * * * Physician Interpretation * * * * EXAMINATION: XR SHLDR >/=3V AP/MALU AP/OTHR RT, XR WRIST 4V PA/LAT/OBL/SCAPH RT, XR ELBOW 3V AP/LAT/OTHER RT HISTORY: trauma right shoulder (accession [id number]), trauma right wrist (accession [id number]), trauma elbow right t (accession [id number]) Trauma. TECHNIQUE: XR SHLDR >/=3V AP/MALU AP/OTHR RT, XR WRIST 4V PA/LAT/OBL/SCAPH RT, XR ELBOW 3V AP/LAT/OTHER RT Laterality: RIGHT Number of different views (projections): 3 (accession [id number]), 4 (accession [id number]), 3 (accession [id number]) M: XB_1 COMPARISON: None. RESULT: Right shoulder: Bones are diffusely demineralized. Acute comminuted fracture of the surgical neck of the right humerus with extension into the greater tuberosity. Mild impaction. No other fracture or traumatic malalignment identified. Right elbow: Suboptimal positioning. Bones are diffusely demineralized. No acute fracture or traumatic malalignment identified. Evaluation for a joint effusion is suboptimal due to positioning. Right wrist: Bones are diffusely demineralized. Acute impacted and intra-articular fracture of the right distal radial metaphysis. Minimally displaced ulnar styloid fracture. Dorsal soft tissue swelling. IMPRESSION: * Acute comminuted fracture of the right proximal humerus. * Acute impacted and intra-articular fracture of the right distal radial metaphysis. * Minimally displaced ulnar styloid fracture. * No acute osseous abnormality of the right elbow identified. Knitter Machine: PSCB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 Anterior, Right Lower Leg - Anterior Apply to affected areas BID x 4 weeks Stop using when clear. Repeat as needed for flares. Do not use on face, armpits, groin. Orders Placed This Encounter Medications triamcinolone (Kenalog) 0.1 % cream Sig: Apply to affected areas BID x 4 weeks Stop using when clear. Repeat as needed for flares. Do not use on face, armpits, groin. Dispense: 454.6 g Refill: 2 Follow up in about 2 months (around 02/29/2024) for Stasis derm f/u. Dinorah Chow MD 12/30/23 10:56 AM REFERRING MD: Zenaida [facility] KANWAL Comprehensive Panelon KANWAL TABLE Comment Normal . [facility] Comment on above: Result Comment: Auto antibody Disease Association Condition Frequency --------- Antinuclear Antibody, SLE, mixed connective Direct (KANWAL-D) tissue diseases --------- dsDNA SLE 40 - 60% --------- Chromatin Drug induced SLE 90% SLE 48 - 97% --------- SSA (Ro) SLE 25 - 35% Sjogren's Syndrome 40 - 70% Lupus 100% --------- SSB (La) SLE 10% Sjogren's Syndrome 30% --------- Sm (anti-Hay) SLE 15 - 30% --------- ASSISTANT AUDITOR Mixed Connective Tissue Disease 95% (U1 nRNP, SLE 30 - 50% anti-ribonucleoprotein) Polymyositis and/or Dermatomyositis 20% --------- Scl-70 (antiDNA Scleroderma (diffuse) 20 - 35% topoisomerase) Crest 13% --------- Alissa-1 Polymyositis and/or Dermatomyositis 20 - 40% --------- Centromere B Scleroderma - Crest variant 80% Performed at: [address] [id number] Biomedical Manager: Carmine Russ PhD, Phone: [phone] Performed By: #### L 500.4050, L3100.5440, L501.9520, L100.0100 #### [facility] [address] [place], [address] ANTI-CENT B AB <0.2 Normal 0.0-0.9 [facility] Comment on above: Performed By: #### L 500.4050, L3100.5440, L501.9520, L100.0100 #### [facility] [address] [place], [address] ANTI-DNA (DS)AB <1 Normal 0-9 [facility] Comment on above: Result Comment: Nega tive <5 Equivocal 5 - 9 Positive >9 Performed By: #### L 500.4050, L3100.5440, L501.9520, L100.0100 #### [facility] [address] [place], [address] ANTI-ALISSA-1 <0.2 Normal 0.0-0.9 [facility] Comment on above: Performed By: #### L 500.4050, L3100.5440, L501.9520, L100.0100 #### [facility] [address] [place], [address] ANTI-SS-A < 0.2 Normal 0.0-0.9 [facility] Comment on above: Performed By: #### L 500.4050, L3100.5440, L501.9520, L100.0100 #### [facility] [address] [place], [address] Anti-SS-B < 0.2 Normal 0.0-0.9 [facility] Comment on above: Performed By: #### L 500.4050, L3100.5440, L501.9520, L100.0100 #### [facility] [address] [place], [address] ANTICHROMATIN <0.2 Normal 0.0-0.9 [facility] Comment on above: Performed By: #### L 500.4050, L3100.5440, L501.9520, L100.0100 #### [facility] [address] [place], [address] ANTISCLERODERM <0.2 Normal 0.0-0.9 [facility] Comment on above: Performed By: #### L 500.4050, L3100.5440, L501.9520, L100.0100 #### [facility] [address] [place], [address] ASSISTANT AUDITOR Ab <0.2 Normal 0.0-0.9 [facility] Comment on above: Performed By: #### L 500.4050, L3100.5440, L501.9520, L100.0100 #### [facility] [address] [place], [address] HAY Ab <0.2 Normal 0.0-0.9 [facility] Comment on above: Performed By: #### L 500.4050, L3100.5440, L501.9520, L100.0100 #### [facility] [address] [place], [address] CBC W/Diff, Automatedon 06-04 08-2023 Absolute Lymph 1.49 X10 3/uL Normal 0.83-4.51 [facility] Comment on above: Performed By: #### L 500.4050, L3100.5440, L501.9520, L100.0100 #### [facility] [address] [place], [address] Absolute Neut 5.9 X10 3/uL Normal 2.0-7.7 [facility] Comment on above: Performed By: #### L 500.4050, L3100.5440, L501.9520, L100.0100 #### [facility] [address] [place], [address] Basophils/100 WBC (Bld) 0.6 % Normal 0-1 [facility] Comment on above: Performed By: #### L 500.4050, L3100.5440, L501.9520, L100.0100 #### [facility] [address] [place], [address] Eosinophils/100 WBC (Bld) 1.8 % Normal 0-5 [facility] Comment on above: Performed By: #### L 500.4050, L3100.5440, L501.9520, L100.0100 #### [facility] [address] [place], [address] Erythrocyte distribution width (RBC) [Ratio] 13.3 % Normal 11.6-14.6 [facility] Comment on above: Performed By: #### L 500.4050, L3100.5440, L501.9520, L100.0100 #### [facility] [address] [place], [address] Hematocrit (Bld) [Volume fraction] 40.9 % Normal 37-47 [facility] Comment on above: Performed By: #### L 500.4050, L3100.5440, L501.9520, L100.0100 #### [facility] [address] [place], [address] Hemoglobin (Bld) [Mass/Vol] 13.0 g/dL Normal 12.0-15.0 [facility] Comment on above: Performed By: #### L 500.4050, L3100.5440, L501.9520, L100.0100 #### [facility] [address] [place], [address] IG% 0.200 Normal 0.0-0.9 [facility] Comment on above: Result Comment: IG% - Immature Granulocytes (promyelocytes, myelocytes and metamyelocytes) > 1% indicates that a LEFT SHIFT is Present. Performed By: #### L 500.4050, L3100.5440, L501.9520, L100.0100 #### [facility] [address] [place], [address] Lymphocytes/100 WBC (Bld) 18.2 % Low 19-41 [facility] Comment on above: Performed By: #### L 500.4050, L3100.5440, L501.9520, L100.0100 #### [facility] [address] [place], [address] MCH (RBC) [Entitic mass] 29.8 pg Normal 27.0-32.0 [facility] Comment on above: Performed By: #### L 500.4050, L3100.5440, L501.9520, L100.0100 #### [facility] [address] [place], [address] MCHC (RBC) [Mass/Vol] 31.8 g/dL Low 32-36 [facility] Comment on above: Performed By: #### L 500.4050, L3100.5440, L501.9520, L100.0100 #### [facility] [address] [place], [address] MCV (RBC) [Entitic vol] 93.8 fL Normal 81-99 [facility] Comment on above: Performed By: #### L 500.4050, L3100.5440, L501.9520, L100.0100 #### [facility] [address] [place], [address] Monocytes/100 WBC (Bld) 6.9 % Normal 0-10 [facility] Comment on above: Performed By: #### L 500.4050, L3100.5440, L501.9520, L100.0100 #### [facility] [address] [place], [address] Neutrophils/100 WBC (Bld) 72.3 % High 47-70 [facility] Comment on above: Performed By: #### L 500.4050, L3100.5440, L501.9520, L100.0100 #### [facility] [address] [place], [address] Nucleated RBC (Bld) [#/Vol] 0 10*3/uL Normal 0-5 [facility] Comment on above: Performed By: #### L 500.4050, L3100.5440, L501.9520, L100.0100 #### [facility] [address] [place], [address] Platelet mean volume (Bld) [Entitic vol] 12.5 fL High 6.2-12.0 [facility] Comment on above: Performed By: #### L 500.4050, L3100.5440, L501.9520, L100.0100 #### [facility] [address] [place], [address] Platelets (Bld) [#/Vol] 228 10*3/uL Normal 150-450 [facility] Comment on above: Performed By: #### L 500.4050, L3100.5440, L501.9520, L100.0100 #### [facility] [address] [place], [address] RBC (Bld) [#/Vol] 4.36 10*6/uL Normal 4.2-5.4 [facility] Comment on above: Performed By: #### L 500.4050, L3100.5440, L501.9520, L100.0100 #### [facility] [address] [place], [address] RDW SD 45.9 fl High 35.1-43.9 [facility] Comment on above: Performed By: #### L 500.4050, L3100.5440, L501.9520, L100.0100 #### [facility] [address] [place], [address] WBC (Bld) [#/Vol] 8.2 10*3/uL Normal 4.4-11.0 [facility] Comment on above: Performed By: #### L 500.4050, L3100.5440, L501.9520, L100.0100 #### [facility] [address] [place], [address] [facility] 09-17-2023 Albumin [Mass/Vol] 3.9 g/dL Normal 3.2-5.0 [facility] Comment on above: Performed By: #### L 500.4050, L3100.5440, L501.9520, L100.0100 #### [facility] [address] [place], [address] Albumin/Globulin [Mass ratio] 1.1 {ratio} Normal 0.9-2.4 [facility] Comment on above: Performed By: #### L 500.4050, L3100.5440, L501.9520, L100.0100 #### [facility] [address] [place], [address] ALK P 98 U/L Normal 45-117 [facility] Comment on above: Performed By: #### L 500.4050, L3100.5440, L501.9520, L100.0100 #### [facility] [address] [place], [address] ALT [Catalytic activity/Vol] 21 U/L Normal 13-56 [facility] Comment on above: Performed By: #### L 500.4050, L3100.5440, L501.9520, L100.0100 #### [facility] [address] [place], [address] AST [Catalytic activity/Vol] 14 U/L Low 15-37 [facility] Comment on above: Performed By: #### L 500.4050, L3100.5440, L501.9520, L100.0100 #### [facility] [address] [place], [address] Bilirubin [Mass/Vol] 0.50 mg/dL Normal 0.20-1.00 [facility] Comment on above: Result Comment: For patients on eltrombopag therapy, use of Dimension [place] TBIL is not recommended. Performed By: #### L 500.4050, L3100.5440, L501.9520, L100.0100 #### [facility] [address] [place], [address] BUN/CRE 14.3 RATIO Normal 10-20 [facility] Comment on above: Performed By: #### L 500.4050, L3100.5440, L501.9520, L100.0100 #### [facility] [address] [place], [address] CA,Total 9.9 mg/dL Normal 8.5-10.1 [facility] Comment on above: Performed By: #### L 500.4050, L3100.5440, L501.9520, L100.0100 #### [facility] [address] [place], [address] Chloride [Moles/Vol] 110 mmol/L High 98-107 [facility] Comment on above: Performed By: #### L 500.4050, L3100.5440, L501.9520, L100.0100 #### [facility] [address] [place], [address] CO2 [Moles/Vol] 26.0 mmol/L Normal 21.0-32.0 [facility] Comment on above: Performed By: #### L 500.4050, L3100.5440, L501.9520, L100.0100 #### [facility] [address] [place], [address] Creatinine [Mass/Vol] 1.05 mg/dL High 0.55-1.02 [facility] Comment on above: Result Comment: The validity of the calculated GFR GFRAA in patients over 70 years has not been determined. Clinical correlation is essential. Performed By: #### L 500.4050, L3100.5440, L501.9520, L100.0100 #### [facility] [address] [place], [address] EST GFR - AA 67 mL/min Normal >60 [facility] Comment on above: Result Comment: Afri can [place] GFR Calc Performed By: #### L 500.4050, L3100.5440, L501.9520, L100.0100 #### [facility] [address] [place], [address] GAP 5 Normal 5-15 [facility] Comment on above: Performed By: #### L 500.4050, L3100.5440, L501.9520, L100.0100 #### [facility] [address] [place], [address] GFR/1.73 sq M.predicted among non-blacks MDRD (S/P/Bld) [Vol rate/Area] 55 mL/min/{1.73_m2} Low >60 [facility] Comment on above: Result Comment: Non- GFR Calc Performed By: #### L 500.4050, L3100.5440, L501.9520, L100.0100 #### [facility] [address] [place], [address] Globulin (S) [Mass/Vol] 3.4 g/dL Normal 2.2-4.2 [facility] Comment on above: Performed By: #### L 500.4050, L3100.5440, L501.9520, L100.0100 #### [facility] [address] [place], [address] Glucose [Mass/Vol] 130 mg/dL High 74-106 [facility] Comment on above: Result Comment: Fast ing Glucose result greater than or equal to 126 mg/dL suggests DIABETES MELLITUS per A.D.A. criteria. Performed By: #### L 500.4050, L3100.5440, L501.9520, L100.0100 #### [facility] [address] [place], [address] Potassium [Moles/Vol] 4.2 mmol/L Normal 3.5-5.1 [facility] Comment on above: Performed By: #### L 500.4050, L3100.5440, L501.9520, L100.0100 #### [facility] [address] [place], [address] Sodium [Moles/Vol] 141 mmol/L Normal 136-145 [facility] Comment on above: Performed By: #### L 500.4050, L3100.5440, L501.9520, L100.0100 #### [facility] [address] [place], [address] T PROT 7.3 g/dL Normal 6.4-8.2 [facility] Comment on above: Performed By: #### L 500.4050, L3100.5440, L501.9520, L100.0100 #### [facility] [address] [place], [address] Urea nitrogen [Mass/Vol] 15 mg/dL Normal 7-18 [facility] Comment on above: Performed By: #### L 500.4050, L3100.5440, L501.9520, L100.0100 #### [facility] [address] [place], [address] Thyroid Stim Hormone (TSH)on 09-17-2023 TSH 1.37 uIU/mL Normal 0.358-3.74 [facility] Comment on above: Performed By: #### L 500.4050, L3100.5440, L501.9520, L100.0100 #### [facility] [address] [place], [place], [address] Basic Panelon 07-22-2018 Creatinine mass conc 0.69 mg/dL Normal 0.51-0.95 [facility] Comment on above: Performed By: #### P 14 #### [facility] [address] [place], [place] [address] Urea nitrogen mass conc 10 mg/dL Normal 7-18 [facility] Comment on above: Performed By: #### P 14 #### [facility] [address] [place], [place] [address] Anion gap molar conc 10 mmol/L Normal 8-16 [facility] Comment on above: Performed By: #### P 14 #### [facility] [address] [place], [place] [address] Calcium mass conc 9.1 mg/dL Normal 8.5-10.1 [facility] Comment on above: Performed By: #### P 14 #### [facility] [address] [place], [place] [address] CO2 molar conc 22 mmol/L Normal 21-32 [facility] Comment on above: Performed By: #### P 14 #### [facility] [address] [place], [place] [address] Glucose mass conc 101 mg/dL High 70-99 [facility] Comment on above: Performed By: #### P 14 #### [facility] [address] [place], [place] [address] Chloride molar conc 110 mmol/L High 98-107 [facility] Comment on above: Performed By: #### P 14 #### [facility] [address] [place] [address] Potassium molar conc 3.7 mmol/L Normal 3.5-5.1 [facility] Comment on above: Performed By: #### P 14 #### [facility] [address] [place] [address] Sodium molar conc 138 mmol/L Normal 136-145 [facility] Comment on above: Performed By: #### P 14 #### [facility] [address] [place] [address] Hemogramon 07-22-2018 Erythrocyte distribution width Ratio (RBC) 12.8 % Normal 11.7-14.4 [facility] Comment on above: Performed By: #### P 14 #### [facility] [address] [place] [address] Hematocrit Volume Fraction (Bld) 42.7 % Normal 34.1-44.9 [facility] Comment on above: Performed By: #### P 14 #### [facility] [address] [place] [address] Hemoglobin mass conc (Bld) 13.8 g/dL Normal 11.2-15.7 [facility] Comment on above: Performed By: #### P 14 #### [facility] [address] [place] [address] MCH Entitic mass (RBC) 29.5 pg Normal 25.6-32.2 [facility] Comment on above: Performed By: #### P 14 #### [facility] [address] [place] [address] MCHC mass conc (RBC) 32.3 % Normal 31.6-34.8 [facility] Comment on above: Performed By: #### P 14 #### [facility] [address] [place] [address] MCV Entitic volume (RBC) 91.2 fL Normal 79.4-94.8 [facility] Comment on above: Performed By: #### P 14 #### [facility] [address] [place] [address] Platelet mean volume Entitic volume (Bld) 11.4 fL Normal 9.4-12.3 [facility] Comment on above: Performed By: #### P 14 #### [facility] [address] [place] [address] Platelets #/vol (Bld) 203 thou/cmm Normal 182-369 [facility] Comment on above: Performed By: #### P 14 #### [facility] [address] [place] [address] RBC #/vol (Bld) 4.68 mil/cmm Normal 3.93-5.22 [facility] Comment on above: Performed By: #### P 14 #### [facility] [address] [place] [address] RDW SD 43.0 fl Normal 36.4-46.3 [facility] Comment on above: Performed By: #### P 14 #### [facility] [address] [place] [address] WBC #/vol (Bld) 6.49 thou/cmm Normal 3.98-10.04 [facility] Comment on above: Performed By: #### P 14 #### [place] [address] MDRD GFRon 07-22-2018 GFR/1.73 sq M predicted among non-blacks MDRD vol rate/area (S/P/Bld) mL/min/{1.73_m2} Normal >60mL/min/1.7 3m2 [facility] Comment on above: Result Comment: If t he patient is , multiply the result by 1.210. Performed By: #### G FR #### [facility] [address] [place] [address] Basic Panelon 07-21-2018 Creatinine mass conc 0.67 mg/dL Normal 0.51-0.95 [facility] Comment on above: Performed By: #### P 14 #### [facility] [address] [place] [address] Anion gap molar conc 9 mmol/L Normal 8-16 [facility] Comment on above: Performed By: #### P 14 #### [facility] [address] [place], [place] [address] Calcium mass conc 8.6 mg/dL Normal 8.5-10.1 [facility] Comment on above: Performed By: #### P 14 #### [facility] [address] [place] [address] CO2 molar conc 24 mmol/L Normal 21-32 [facility] Comment on above: Performed By: #### P 14 #### [facility] [address] [place] [address] Glucose mass conc 98 mg/dL Normal 70-99 [facility] Comment on above: Performed By: #### P 14 #### [facility] [address] [place] [address] Urea nitrogen mass conc 9 mg/dL Normal 7-18 [facility] Comment on above: Performed By: #### P 14 #### [facility] [address] [place] [address] Chloride molar conc 113 mmol/L High 98-107 [facility] Comment on above: Performed By: #### P 14 #### [facility] [address] [place] [address] Potassium molar conc 3.4 mmol/L Low 3.5-5.1 [facility] Comment on above: Performed By: #### P 14 #### [facility] [address] [place] [address] Sodium molar conc 143 mmol/L Normal 136-145 [facility] Comment on above: Performed By: #### P 14 #### [facility] [address] [place] [address] Hemogramon 07-21-2018 Erythrocyte distribution width Ratio (RBC) 12.9 % Normal 11.7-14.4 [facility] Comment on above: Performed By: #### C BC1 #### [facility] [address] [place] [address] Hematocrit Volume Fraction (Bld) 40.1 % Normal 34.1-44.9 [facility] Comment on above: Performed By: #### C BC1 #### [facility] [address] [place] [address] Hemoglobin mass conc (Bld) 12.8 g/dL Normal 11.2-15.7 [facility] Comment on above: Performed By: #### C BC1 #### [facility] [address] [place] [address] MCH Entitic mass (RBC) 29.4 pg Normal 25.6-32.2 [facility] Comment on above: Performed By: #### C BC1 #### [facility] [address] [place] [address] MCHC mass conc (RBC) 31.9 % Normal 31.6-34.8 [facility] Comment on above: Performed By: #### C BC1 #### [facility] [address] [place] [address] MCV Entitic volume (RBC) 92.2 fL Normal 79.4-94.8 [facility] Comment on above: Performed By: #### C BC1 #### [facility] [address] [place] [address] Platelet mean volume Entitic volume (Bld) 11.8 fL Normal 9.4-12.3 [facility] Comment on above: Performed By: #### C BC1 #### [facility] [address] [place] [address] Platelets #/vol (Bld) 197 thou/cmm Normal 182-369 [facility] Comment on above: Performed By: #### C BC1 #### [facility] [address] [place] [address] RBC #/vol (Bld) 4.35 mil/cmm Normal 3.93-5.22 [facility] Comment on above: Performed By: #### C BC1 #### [facility] [address] [place] [address] RDW SD 44.1 fl Normal 36.4-46.3 [facility] Comment on above: Performed By: #### C BC1 #### [facility] [address] [place] [address] WBC #/vol (Bld) 6.83 thou/cmm Normal 3.98-10.04 [facility] Comment on above: Performed By: #### C BC1 #### [facility] [address] [place] [address] Magnesium Bloodon 07-21-2018 Magnesium mass conc 2.2 mg/dL Normal 1.6-2.6 [facility] Comment on above: Performed By: #### P 14 #### [facility] [address] [place] [address] TSH, 3rd generationon 2018 TSH, 3rd generation 1.630 uIU/mL Normal 0.358-3.740 [facility] Comment on above: Performed By: #### T SH3 #### [facility] [address] [place] [address] Comprehensive Panelon 2018 ALP enzyme act/vol 102 U/L Normal 46-116 [facility] Comment on above: Performed By: #### P 14 #### [facility] [address] [place] [address] Protein mass conc 7.5 g/dL Normal 6.4-8.2 [facility] Comment on above: Performed By: #### P 14 #### [facility] [address] [place] [address] Bilirubin mass conc 0.3 mg/dL Normal 0.2-1.0 [facility] Comment on above: Performed By: #### P 14 #### [facility] [address] [place] [address] ALT enzyme act/vol 27 U/L Normal 12-78 [facility] Comment on above: Performed By: #### P 14 #### [facility] [address] [place] [address] Creatinine mass conc 0.64 mg/dL Normal 0.51-0.95 [facility] Comment on above: Performed By: #### P 14 #### [facility] [address] [place] [address] AST enzyme act/vol 15 U/L Normal 9-37 [facility] Comment on above: Performed By: #### P 14 #### [facility] [address] [place] [address] Glucose mass conc 120 mg/dL High 70-99 [facility] Comment on above: Performed By: #### P 14 #### [facility] [address] [place] [address] Albumin mass conc 3.9 g/dL Normal 3.4-5.0 [facility] Comment on above: Performed By: #### P 14 #### [facility] [address] [place] [address] Anion gap molar conc 11 mmol/L Normal 8-16 [facility] Comment on above: Performed By: #### P 14 #### [facility] [address] [place] [address] Calcium mass conc 9.2 mg/dL Normal 8.5-10.1 [facility] Comment on above: Performed By: #### P 14 #### [facility] [address] [place] [address] CO2 molar conc 23 mmol/L Normal 21-32 [facility] Comment on above: Performed By: #### P 14 #### [facility] [address] [place] [address] Urea nitrogen mass conc 16 mg/dL Normal 7-18 [facility] Comment on above: Performed By: #### P 14 #### [facility] [address] [place] [address] Chloride molar conc 110 mmol/L High 98-107 [facility] Comment on above: Performed By: #### P 14 #### [facility] [address] [place] [address] Potassium molar conc 4.1 mmol/L Normal 3.5-5.1 [facility] Comment on above: Performed By: #### P 14 #### [facility] [address] [place] [address] Sodium molar conc 140 mmol/L Normal 136-145 [facility] Comment on above: Performed By: #### P 14 #### [facility] [address] [place] [address] D-Dimer Quantitativeon 07-20 Fibrin D-dimer FEU IA mass conc (Bld) 780 ng/mL(FEU) Critically high <500 [facility] Comment on above: Result Comment: 500 ng/mL FEU is the D-dimer cutoff to exclude DVT (deep vein thrombosis)and PE (pulmonary embolism)in patients with a low pre-test probability. Supplemental Comment: In patients over 50 years with a low Pre-test probability for DVT and/or PE, an age-adjusted D-dimer cutoff can be calculated as [age X 10] ng/mL FEU. For example, a patient of 88 years would have an age-adjusted D-dimer of 880 ng/mL FEU. For patients with a suspected DVT, a D-dimer level below 500 ng/mL FEU has a negative predictive value of >=99.0%, a sensitivity of >=97.0% and a specificity of >=35.8%. Performed By: #### D DMRN #### [place] [address] ECU Troponin Ion 07-20-2018 Troponin I.cardiac mass conc ng/mL Normal 0.015-0.045 [facility] Comment on above: Performed By: #### E RTRP #### [place] [address] Troponin I.cardiac mass conc ng/mL Normal 0.015-0.045 [facility] Comment on above: Performed By: #### E RTRP #### [place] [address] Hemogram/Diffon 07-20-2018 Abs Immature Grans 0.01 thou/cmm Normal 0.00-0.05 [facility] Comment on above: Performed By: #### C BCD1 #### [place] [address] Abs. Baso 0.03 thou/cmm Normal 0.01-0.08 [facility] Comment on above: Performed By: #### C BCD1 #### [place] [address] Abs. Colbert 0.40 thou/cmm Normal 0.27-0.70 [facility] Comment on above: Performed By: #### C BCD1 #### [facility] [address] [place] [address] Abs. Neut (ANC) 4.31 thou/cmm Normal 1.56-6.13 [facility] Comment on above: Performed By: #### C BCD1 #### [facility] [address] [place] [address] Basophils/100 WBC (Bld) 0.5 % Normal [facility] Comment on above: Performed By: #### C BCD1 #### [facility] [address] [place] [address] Eosinophils #/vol (Bld) 0.01 thou/cmm Normal 0.00-0.31 [facility] Comment on above: Performed By: #### C BCD1 #### [facility] [address] [place] [address] Eosinophils/100 WBC (Bld) 0.2 % Normal [facility] Comment on above: Performed By: #### C BCD1 #### [facility] [address] [place] [address] Erythrocyte distribution width Ratio (RBC) 12.8 % Normal 11.7-14.4 [facility] Comment on above: Performed By: #### C BCD1 #### [facility] [address] [place] [address] Hematocrit Volume Fraction (Bld) 43.3 % Normal 34.1-44.9 [facility] Comment on above: Performed By: #### C BCD1 #### [facility] [address] [place] [address] Hemoglobin mass conc (Bld) 14.1 g/dL Normal 11.2-15.7 [facility] Comment on above: Performed By: #### C BCD1 #### [facility] [address] [place] [address] Immature Grans 0.20 % Normal [facility] Comment on above: Performed By: #### C BCD1 #### [facility] [address] [place] [address] Lymphocytes #/vol (Bld) 1.70 thou/cmm Normal 1.18-3.74 [facility] Comment on above: Performed By: #### C BCD1 #### [facility] [address] [place], [place] [address] Lymphocytes/100 WBC (Bld) 26.3 % Normal [facility] Comment on above: Performed By: #### C BCD1 #### [facility] [address] [place], [place] [address] MCH Entitic mass (RBC) 29.3 pg Normal 25.6-32.2 [facility] Comment on above: Performed By: #### C BCD1 #### [facility] [address] [place], [place] [address] MCHC mass conc (RBC) 32.6 % Normal 31.6-34.8 [facility] Comment on above: Performed By: #### C BCD1 #### [facility] [address] [place] [address] MCV Entitic volume (RBC) 90.0 fL Normal 79.4-94.8 [facility] Comment on above: Performed By: #### C BCD1 #### [facility] [address] [place] [address] Monocytes/100 WBC (Bld) 6.2 % Normal [facility] Comment on above: Performed By: #### C BCD1 #### [facility] [address] [place] [address] Platelet mean volume Entitic volume (Bld) 11.2 fL Normal 9.4-12.3 [facility] Comment on above: Performed By: #### C BCD1 #### [facility] [address] [place], [place] [address] Platelets #/vol (Bld) 212 thou/cmm Normal 182-369 [facility] Comment on above: Performed By: #### C BCD1 #### [facility] [address] [place] [address] RBC #/vol (Bld) 4.81 mil/cmm Normal 3.93-5.22 [facility] Comment on above: Performed By: #### C BCD1 #### [facility] [address] [place] [address] RDW SD 42.1 fl Normal 36.4-46.3 [facility] Comment on above: Performed By: #### C BCD1 #### [facility] [address] [place] [address] Seg Neutrophil 66.6 % Normal [facility] Comment on above: Performed By: #### C BCD1 #### [facility] [address] [place] [address] WBC #/vol (Bld) 6.47 thou/cmm Normal 3.98-10.04 [facility] Comment on above: Performed By: #### C BCD1 #### [place] [address] Influenza A, B and RSV by PC Tha 07-20-2018 Influenza A by PCR Negative Normal Negative [facility] Comment on above: Performed By: #### F LUR #### [place] [address] Influenza B by PCR Negative Normal Negative [facility] Comment on above: Performed By: #### F LUR #### [place] [address] RSV by PCR Negative Normal Negative [facility] Comment on above: Performed By: #### F LUR #### [place] [address] Urinalysis Routineon 019 Bacteria LM.HPF #/area (Urine sed) NONE Normal None [facility] Comment on above: Performed By: #### U RIN2 #### [facility] [address] [place] [address] Ep Cells Urine 0.8 /hpf Normal 0.0-5.0 [facility] Comment on above: Performed By: #### U RIN2 #### [facility] [address] [place] [address] Hyaline Cast 1.0 /lpf Normal 0.0-1.0 [facility] Comment on above: Performed By: #### U RIN2 #### [place] [address] RBC,Urine 2.6 /hpf Normal 0.0-5.0 [facility] Comment on above: Performed By: #### U RIN2 #### [facility] [address] [place] [address] WBC, Urine 1.0 /hpf Normal 0.0-5.0 [facility] Comment on above: Performed By: #### U RIN2 #### [facility] [address] [place] [address] Appearance Nom (U) CLEAR Normal [facility] Comment on above: Performed By: #### U RIN2 #### [facility] [address] [place] [address] Bilirubin Urine Negative Normal Negative [facility] Comment on above: Performed By: #### U RIN2 #### [facility] [address] [place] [address] Color Nom (U) YELLOW Normal [facility] Comment on above: Performed By: #### U RIN2 #### [facility] [address] [place] [address] Glucose Ql (U) Negative Normal Negative [facility] Comment on above: Performed By: #### U RIN2 #### [facility] [address] [place] [address] Hemoglobin,Urine Negative Normal Negative [facility] Comment on above: Performed By: #### U RIN2 #### [facility] [address] [place] [address] Ketone Urine Negative Normal Negative [facility] Comment on above: Performed By: #### U RIN2 #### [facility] [address] [place] [address] Leukocytes Esterase Negative Normal Negative [facility] Comment on above: Performed By: #### U RIN2 #### [facility] [address] [place] [address] Nitrites Urine Negative Normal Negative [facility] Comment on above: Performed By: #### U RIN2 #### [facility] [address] [place] [address] pH (U) 7.0 [pH] Normal 5.0-8.0 [facility] Comment on above: Performed By: #### U RIN2 #### [facility] [address] [place], [place] [address] Protein mass conc (U) Negative Normal Negative [facility] Comment on above: Performed By: #### U RIN2 #### [facility] [address] [place], [place] [address] Specific [place], Ur 1.024 Normal 1.005-1.030 [facility] Comment on above: Performed By: #### U RIN2 #### [facility] [address] [place], [place] [address] Urobilinogen,Ur 1.0 EU/dL Normal 0.0-1.0 [facility] Comment on above: Performed By: #### U RIN2 #### [facility] [address] [place], [place] [address] Otheron 12-12-2016 CONVERTED CLINICAL HISTORY OPERATIVE PROCEDURE: Not given CLINICAL INFORMATION: Prolapse enterocele, Prolapse rectocele, Prolapse cystocele, Prolapse uterovaginal complete, Vaginal outlet relaxation, Stress incontinence [facility] CONVERTED ELECTRONIC SIGNATURE LAUREN BACA M.D.,PATHOLOGIST (Electronic signature on file) Final Signed Out: 12/12/2016 13:50 [facility] CONVERTED FINAL DIAGNOSIS FINAL DIAGNOSIS: A) CERVICAL CORE, EXCISION - BENIGN SQUAMOUS ENDOCERVICAL TISSUE WITH ACUTE CERVICITIS AND FOCAL EPITHELIAL EROSION. B) UTERUS AND BILATERAL FALLOPIAN TUBES, HYSTERECTOMY AND BILATERAL SALPINGECTOMY - ENDOMETRIUM - FOCAL DISORDERED PROLIFERATIVE ENDOMETRIUM. MYOMETRIUM - MINUTE LEIOMYOMA. BILATERAL FALLOPIAN TUBES - UNREMARKABLE. [facility] CONVERTED GROSS DESCRIPTION GROSS DESCRIPTION: A) Cervical core Received in formalin labeled cervical core consists of a core segment of cervix and ectocervical tissue excised to a depth of 3.4 cm and measuring 1 x 0.5 cm. A stitch kee the ectocervix which is moreno-pink, smooth and glistening. The ectocervical margin is outlined in blue ink, the lateral-radial aspect inked black and a deep end cervical aspect inked orange. The specimen is sectioned and does not reveal any evidence of lesion. Representatives are submitted in cassettes A1 and A2. B) Uterus and bilateral fallopian tubes Received in formalin labeled uterus and bilateral fallopian tubes. It consists of multiple irregular and unoriented fragments, endometrial and myometrial tissue, aggregating to 10 x 7 x 2.5 cm. These fragments altogether weigh 81 gm. Upon further examination, two potential fallopian tubes are also identified. The serosal surfaces of the segments of the uterine tissue are moreno-orange and smooth. The cervix and endocervical canal are not grossly appreciated. The specimen is markedly distorted and a segment of endometrial cavity is identified measuring measuring 1 x 1 cm. Scant amounts of endometrium are grossly apparent. Sectioning of the myometrium reveals a thickness measuring up to 2.0 cm. The scant amounts of endometrium are up to 0.1 cm in thickness. No distinct nodules or polyps are identified after thorough sectioning. The first fallopian tube identified is fimbriated and measures 4 cm in length x 0.3 cm in diameter. Sectioning reveals a pin-point lumen. The second fallopian tube is also fimbriated, measuring 4.5 cm in length x 0.4 cm in diameter. Upon sectioning, a pin-point lumen is identified. [employer] sections are submitted as follows: B1-B3 - segments of potential endometrium and myometrium; B4 - additional myometrium; B5 - first fallopian tube and fimbria; B6 - second fallopian tube and fimbria. BMP:sherry [facility] CONVERTED ORDERING PROVIDER Ordering Provider: ROEL ROE [facility] Vital Signs Date Time Vital Sign Value Performing Clinician Richardi isela 10-05-2024 13:08-0400 Body height 160 cm Lalit Meade MD Work Phone: [facility] 10-05-2024 13:08-0400 Body mass index (BMI) [Ratio] 29.23 kg/m2 Lalit Meade MD Work Phone: [facility] 10-05-2024 13:08-0400 Body weight 74.84 kg Lalit Meade MD Work Phone: [facility] 10-05-2024 13:08-0400 Respiratory rate 18 /min Lalit Meade MD Work Phone: [facility] 09-07-2024 07:42-0400 Body height 160 cm Lalit Meade MD Work Phone: [facility] 09-07-2024 07:42-0400 Body mass index (BMI) [Ratio] 29.23 kg/m2 Lalit Meade MD Work Phone: [facility] 09-07-2024 07:42-0400 Body weight 74.84 kg Lalit Meade MD Work Phone: [facility] 09-07-2024 07:42-0400 Respiratory rate 18 /min Lalit Meade MD Work Phone: [facility] 08-17-2024 14:50-0400 Body height 160 cm Lalit Meade MD Work Phone: [facility] 08-17-2024 14:50-0400 Body mass index (BMI) [Ratio] 29.23 kg/m2 Lalit Meade MD Work Phone: [facility] 08-17-2024 14:50-0400 Body weight 74.84 kg Lalit Meade MD Work Phone: [facility] 08-17-2024 14:50-0400 Respiratory rate 18 /min Lalit Meade MD Work Phone: [facility] 07-27-2024 14:03-0400 Body height 160 cm Lalit Meade MD Work Phone: [facility] 07-27-2024 14:03-0400 Body mass index (BMI) [Ratio] 29.23 kg/m2 Lalit Meade MD Work Phone: [facility] 07-27-2024 14:03-0400 Body weight 74.84 kg Lalit Meade MD Work Phone: [facility] 07-27-2024 14:03-0400 Respiratory rate 16 /min Lalit Meade MD Work Phone: [facility] 07-27-2024 11:46-0400 Body temperature 97.39 [degF] Dinorah Chow MD Work Phone: [facility] [place] [facility] 07-27-2024 11:46-0400 Diastolic blood pressure 76 mm[Hg] Dinorah Chow MD Work Phone: [facility] [place] [facility] 07-27-2024 11:46-0400 Heart rate 77 /min Dinorah Chow MD Work Phone: [facility] 07-27-2024 11:46-0400 Systolic blood pressure 119 mm[Hg] Dinorah Chow MD Work Phone: [facility] [place] [facility] Encounters Encounter Date Encounter Type Care Provider Facility Start: 10-05-2024 End: 10-05-2024 Patient encounter procedure Lalit Meade MD Work Phone: [facility] Comment on above: Other closed intra-a rticular fracture of distal end of right radius with routine healing, subsequent encounter (Primary Dx); Other closed displaced fracture of proximal end of right humerus with routine healing, subsequent encounter Start: 10-05-2024 End: 10-05-2024 ambulatory LALIT MEADE [facility] Start: 09-07-2024 End: 09-07-2024 Telephone encounter Lalit Meade MD Work Phone: [facility] Comment on above: Patient Question Start: 09-07-2024 End: 09-07-2024 Patient encounter procedure Lalit Meade MD Work Phone: [facility] Comment on above: Other closed intra-a rticular fracture of distal end of right radius with routine healing, subsequent encounter (Primary Dx); Other closed displaced fracture of proximal end of right humerus with routine healing, subsequent encounter Start: 09-07-2024 End: 09-07-2024 ambulatory LALIT MEADE Facility:[facility] Start: 08-17-2024 End: 08-17-2024 Patient encounter procedure Lalit Meade MD Work Phone: [facility] Comment on above: Other closed intra-a rticular fracture of distal end of right radius with routine healing, subsequent encounter (Primary Dx); Other closed displaced fracture of proximal end of right humerus with routine healing, subsequent encounter Start: 08-17-2024 End: 08-17-2024 ambulatory LALIT MEADE Facility:[facility] Start: 08-04-2024 End: 08-09-2024 Telephone encounter Shima Eaton APRN.CNP Work Phone: [facility] Comment on above: Appointment (Osteopo rosis referral) Start: 07-27-2024 End: 07-27-2024 Patient encounter procedure Lalit Meade MD Work Phone: [facility] Comment on above: Other closed displac ed fracture of proximal end of right humerus, initial encounter (Primary Dx); Other closed intra-articular fracture of distal end of right radius, initial encounter; Age-related osteoporosis with current pathological fracture, initial encounter Start: 07-27-2024 End: 07-27-2024 ambulatory LALIT MEADE Facility:[facility] Start: 07-27-2024 End: 07-27-2024 ambulatory [facility] Start: 07-27-2024 End: 07-27-2024 Office outpatient visit 25 minutes Dinorah Chow MD Work Phone: [facility] [place] [facility] Comment on above: Intrinsic atopic frida matitis (Primary Dx); Stasis dermatitis Start: 07-26-2024 End: 07-26-2024 Telephone encounter Lalit Meade MD Work Phone: [facility] Comment on above: Appointment Start: 07-23-2024 End: 07-24-2024 Emergency department patient visit ALESSIA CARLY Facility:[facility] Start: 02-24-2024 End: 02-24-2024 ambulatory [facility] Start: 12-30-2023 End: 12-30-2023 ambulatory [facility] Start: 09-17-2023 End: 09-17-2023 ambulatory Courtney Mendoza NP Facility:[facility] Start: 07-20-2018 End: 07-22-2018 Evaluation and management of inpatient ASHLEY MANOLO LILAJEREMIAS Facility:[facility] Start: 12-10-2016 End: 12-10-2016 Patient encounter procedure Roel Jones [place] Work Phone: [facility] Start: 12-10-2016 Results Only Roel Beccaio s [place] Work Phone: [facility] Procedures Date Procedure Procedure Detail Performing Clinician Start: 10-05-2024 Radex shoulder compl ete minimum 2 views Lalit Meade MD Work Phone: Start: 09-07-2024 Radex shoulder compl ete minimum 2 views Lalit Meade MD Work Phone: Start: 08-17-2024 Radex shoulder compl ete minimum 2 views Lalit Meade MD Work Phone: Start: 07-27-2024 Radex shoulder compl ete minimum 2 views Lalit Meade MD Work Phone: Start: 12-10-2016 CONVERTED SURGICAL PATHOLOGY Roel Roe Work Phone: Plan of Treatment Date Care Activity Detail Author Start: 2030 RSV Vaccine (1 - 1-d ose 75+ series) RSV Vaccine (1 - 1-dose 75+ series) [facility] Start: 07-24-2027 Diabetes Screening Diabetes Screenin g [facility] Start: 01-25-2025 End: 01-25-2025 Patient encounter procedure 01/25/2025 11:30 AM EDT Office Visit [facility] [address] [facility] [address] [place] [id number] Dinorah Chow MD [address] [facility] [place] [address] [facility] Start: 12-06-2024 Influenza vaccination [facility] Start: 10-05-2024 End: 10-05-2024 Patient encounter procedure 10/05/2024 1:15 PM EDT Office Visit [facility] [address] [place] [address] Lalit Meade MD [address] [facility] [address] [place] [id number] RIGHT RADIUS FU [facility] Comment on above: RIGHT RADIUS FU Start: 09-07-2024 End: 09-07-2024 Patient encounter procedure 09/07/2024 7:45 AM EDT Office Visit [facility] [address] [place] [address] Lalit Meade MD [address] [place], [place] [id number] RIGHT RADIUS FU [facility] Comment on above: RIGHT RADIUS FU Start: 08-17-2024 End: 08-17-2024 Patient encounter procedure 08/17/2024 2:45 PM EDT Office Visit [facility] [address] [place] [address] Lalit Meade MD [address] [place] [address] R radius [facility] Comment on above: R radius Start: 07-27-2024 End: 07-27-2024 Patient encounter procedure 07/27/2024 2:15 PM EDT Office Visit [facility] [address] [place] [address] Lalit Meade MD [address] [place] [address] Right radius [facility] Comment on above: Right radius Start: 04-07-2024 Advance Directive Discussion Advance Directive Discussion [facility] Start: 12-07-2023 Covid-19 Vaccine ( season) Covid-19 Vaccine ( season) [facility] Start: 12-07-2023 Influenza vaccination Influenza Vacc ine (#1) [facility] Start: 07-22-2021 DIABETES SCREEN DIABETES SCREEN [facility] Start: 2020 Screening for osteoporosis Bone Density Screening [facility] Start: 04-07-2020 Medicare Annual Wellness Visit Medicare Annual Wellness Visit [facility] Start: 12-07-2019 Influenza vaccination INFLUENZA (#1) [facility] Start: 2015 RSV Immunization for Adults (1 - Risk 60-74 years 1-dose series) RSV Immunization for Adults (1 - Risk 60-74 years 1-dose series) [facility] [place] [facility] Start: 2005 Pneumococcal Vaccine : 50+ (1 of 1 - PCV) Pneumococcal Vaccine: 50+ (1 of 1 - PCV) [facility] Start: 2005 SHINGRIX VACCINE (1 of 2) SHINGRIX VACCINE (1 of 2) [facility] Start: 2005 Tuberculosis screening COLOREC FLAVIO CANCER SCREENING,SEE MODIFIER [facility] Start: 2000 Lipid panel Lipid Screening [facility] Start: 2000 LIPID SCREEN LIPID SCREEN [facility] Start: 2000 Screening for malign ant neoplasm of colon [facility] Start: 1995 Mammography MAMMOGRAM [facility] Start: 1995 Screening for malign ant neoplasm of breast [facility] Start: 1985 HPV TESTING HPV TESTING [facility] Start: 1976 PAP TESTING PAP TESTING [facility] Start: 1974 DTaP/Tdap/Td Vaccine s (1 - Tdap) DTaP/Tdap/Td Vaccines (1 - Tdap) [facility] [place] [facility] Start: 1974 Pneumococcal Vaccine : 50+ Years (1 of 2 - PCV) Pneumococcal Vaccine: 50+ Years (1 of 2 - PCV) [facility] [place] [facility] Start: 1974 Urine microalbumin profile [facility] Start: 1974 Zoster Vaccines (1 o f 2) Zoster Vaccines (1 of 2) [facility] Start: 1973 Anxiety Screening Anxiety Screening [facility] Start: 1973 Depression Screening Depression Scre ening [facility] Start: 1973 HEPATITIS C SCREENING HEPATITIS C [facility] Start: 1973 Hepatitis C screening Hepatitis C [facility] Start: 1973 HIV SCREENING HIV SCREENING [facility] Start: 1967 Depression Screening Depression Scre ening [facility] Start: 1960 COVID-19 Vaccine (#1) COVID-19 Vacci ne (#1) [facility] Start: 1955 Medicare Annual Wellness (AWV) Medicare Annual Wellness (AWV) [facility] Start: 1955 Screening for malign ant neoplasm of colon [facility] Start: 1955 Screening for osteoporosis Bone Density Scan [facility] Immunizations Immunization Date Immunization Notes Care Provider Fa kendrick 01-21-2012 influenza virus vacc ine, unspecified formulation Lalit Meade MD Work Phone: [facility] Payers Date Payer Category Payer Self-pay 2020 Medicare supplementa l policy (as second payer) [employer]ICARE SUPPLEMENT [id number] 2020 Unknown [id number] 2020 Medicare [id number] 2020 Medicare [id number] 1955 Unknown [id number] Unknown [id number] Unknown [id number] Social History Date Type Detail Facility Start: 10-16-2016 End: 10-05-2024 Tobacco smoking status MSIS Never smoker [facility] Start: 10-16-2016 End: 10-05-2024 Alcohol intake Current drinker of alcohol (finding) [facility] Start: 1955 Sex Assigned At Not on file [facility] Start: 03-26-2022 End: 06-17-2023 History of Social function [facility] Start: 04-07-1977 End: 06-17-2023 Tobacco use panel [facility] smoking consumption unknown [facility] Start: 11-05-2021 Sex Female (finding) [facility] Start: 10-05-2024 Tobacco use and exposure Smokeless t obacco non-user [facility] Start: 10-05-2024 Alcohol Comment two-three times per year [facility] Functional Status Date Assessment Result Facility 07-22-2018 Are you deaf, or do you have serious difficulty hearing No 07/22/2018 2:28 PM Milagros Hope RN No [facility] 07-22-2018 Are you blind, or do you have serious difficulty seeing, even when wearing glasses No 07/22/2018 2:28 PM EDT Milagros Maria RN No [facility] 07-22-2018 Do you have serious difficulty walking or climbing stairs No 07/22/2018 2:28 PM EDT Milagros Maria RN No [facility] 07-22-2018 Do you have difficul ty dressing or bathing No 07/22/2018 2:28 PM EDT Milagros Maria RN No [facility] 07-22-2018 Because of a physica l, mental, or emotional condition, do you have difficulty doing errands alone such as visiting a physician's office or shopping No 07/22/2018 2:28 PM EDT Milagros Maria RN No [facility] Mental Status Date Assessment Result Facility 07-22-2018 Because of a physica l, mental, or emotional condition, do you have serious difficulty concentrating, remembering, or making decisions No 07/22/2018 2:28 PM EDT Milagros Maria RN No [facility] Clinical Notes 07-26-2024 to 10-05-2024 Lalit Meade MD - 10/05/2024 1:09 PM EDTTelephone Encounter - [place] - 09/07/2024 1:40 PM EDTTelephone Encounter - [place] - 09/07/2024 1:40 PM EDT Note Date & Type Note Facility 10-05-2024 Note HNO ID: [id number] Author: LALIT MEADE MD Service: ? Author Type: Physician Type: Progress Notes Filed: 10/05/2024 13:25 Note Text: Chief complaint: Follow-up right proximal humerus fracture and right distal radius fracture. History present illness: Patient returns today for follow-up regarding her right proximal humerus and distal radius fracture. Overall doing better. Both of these were treated conservatively. Has been doing therapy with her granddaughter. States her arm is feeling better. Becoming more active. For the patient's past medical history, past surgical history, medications, allergies, family history, social history, and review of systems please refer to medical history in chart. Physical exam: Patient is alert and oriented no acute distress. Answers questions appropriately has a normal affect. Examination of the right upper extremity shows improved pronation and supination and wrist flexion and extension. She can flex and extend all digits including thumb. Able to actively raise her shoulder up to approximately 100 degrees. Still with some stiffness with overhead activity. Minimal discomfort. Humeral shaft or proximal humerus move as a unit. Imaging: Please refer to the radiographic interpretation Assessment: #1 right proximal humerus fracture. #2 right distal radius fracture. Plan: At this time she is doing better. She continues to improve. She will continue to do her therapy at home. No activity restrictions. After discussion, I will see her back on an as-needed basis. If there is any questions or concerns in the future, she will contact the office. Her questions were answered. [facility] 10-05-2024 History of Presen t illness Narrative Chief complaint: Follow-up right proximal humerus fracture and right distal radius fracture. History present illness: Patient returns today for follow-up regarding her right proximal humerus and distal radius fracture. Overall doing better. Both of these were treated conservatively. Has been doing therapy with her granddaughter. States her arm is feeling better. Becoming more active. For the patient's past medical history, past surgical history, medications, allergies, family history, social history, and review of systems please refer to medical history in chart. Physical exam: Patient is alert and oriented no acute distress. Answers questions appropriately has a normal affect. Examination of the right upper extremity shows improved pronation and supination and wrist flexion and extension. She can flex and extend all digits including thumb. Able to actively raise her shoulder up to approximately 100 degrees. Still with some stiffness with overhead activity. Minimal discomfort. Humeral shaft or proximal humerus move as a unit. Imaging: Please refer to the radiographic interpretation Assessment: #1 right proximal humerus fracture. #2 right distal radius fracture. Plan: At this time she is doing better. She continues to improve. She will continue to do her therapy at home. No activity restrictions. After discussion, I will see her back on an as-needed basis. If there is any questions or concerns in the future, she will contact the office. Her questions were answered. documented in this encounter [facility] 09-07-2024 Telephone encounter Note Images from the original note were not included. She forgot to ask you at the appointment today, can she start using her hot tub again? [place] Farn[place] September 07, 2024 1:40 PM Lalit Meade MD You5 minutes ago (2:27 PM) Yes Called and left a voicemail for the patient, letting her know the response to her question. [place] Farnsworth September 07, 2024 2:34 PM [facility] 09-07-2024 Miscellaneous Notes Images from the original note were not included. She forgot to ask you at the appointment today, can she start using her hot tub again? [place] Farnsworth September 07, 2024 1:40 PM Lalit Meade MD You5 minutes ago (2:27 PM) Yes Called and left a voicemail for the patient, letting her know the response to her question. [place] Farnsworth September 07, 2024 2:34 PM documented in this encounter [facility] 09-07-2024 Note HNO ID: [id number] Author: LALIT MEADE MD Service: ? Author Type: Physician Type: Progress Notes Filed: 09/07/2024 08:16 Note Text: Chief complaint: Follow-up right distal radius and proximal humerus fracture. Patient presents: The patient returns today for follow-up regarding her right distal radius and proximal humerus fracture. These were treated conservatively. States she is slowly getting better. Still with stiffness and swelling right upper extremity. For the patient's past medical history, past surgical history, medications, allergies, family history, social history, and review of systems please refer to medical history in chart. Physical exam: The patient is alert and oriented no acute distress. Answers questions appropriately. Has a normal affect. Examination of right upper extremity shows swelling present in her wrist and hand. She can flex and extend all digits including thumb. Good capillary refill. Sensation to light touch intact. Able to range right elbow. Humeral shaft and proximal humerus move as a unit with minimal pain. Imaging: Please refer to the radiographic interpretation Assessment: #1 right intra-articular distal radius fracture. #2 right proximal humerus fracture. Plan: At this time we will get her into physical therapy. This will be gradual range of motion and strengthening. We discussed her swelling. She may discontinue sling and wrist brace. I will see her back in approximately 1 month. If there is any questions or concerns prior to the next encounter, she will contact the office. Questions answered. Will continue to monitor patient for Other closed intra-articular fracture of distal end of right radius with routine healing, subsequent encounter (primary encounter diagnosis) Other closed displaced fracture of proximal end of right humerus with routine healing, subsequent encounter, patient to schedule visit as per follow up discussed. [facility] 09-07-2024 History of Presen t illness Narrative Chief complaint: Follow-up right distal radius and proximal humerus fracture. Patient presents: The patient returns today for follow-up regarding her right distal radius and proximal humerus fracture. These were treated conservatively. States she is slowly getting better. Still with stiffness and swelling right upper extremity. For the patient's past medical history, past surgical history, medications, allergies, family history, social history, and review of systems please refer to medical history in chart. Physical exam: The patient is alert and oriented no acute distress. Answers questions appropriately. Has a normal affect. Examination of right upper extremity shows swelling present in her wrist and hand. She can flex and extend all digits including thumb. Good capillary refill. Sensation to light touch intact. Able to range right elbow. Humeral shaft and proximal humerus move as a unit with minimal pain. Imaging: Please refer to the radiographic interpretation Assessment: #1 right intra-articular distal radius fracture. #2 right proximal humerus fracture. Plan: At this time we will get her into physical therapy. This will be gradual range of motion and strengthening. We discussed her swelling. She may discontinue sling and wrist brace. I will see her back in approximately 1 month. If there is any questions or concerns prior to the next encounter, she will contact the office. Questions answered. Will continue to monitor patient for Other closed intra-articular fracture of distal end of right radius with routine healing, subsequent encounter (primary encounter diagnosis) Other closed displaced fracture of proximal end of right humerus with routine healing, subsequent encounter, patient to schedule visit as per follow up discussed. documented in this encounter [facility] 08-17-2024 Note HNO ID: [id number] Author: GEREMIAS BARNHART Tech Service: ? Author Type: Extract Puller Type: Progress Notes Filed: 08/17/2024 15:28 Note Text: Pt. Fit for wrist cockup brace on right and instructed on its use. Vishnu Silva [facility] 08-17-2024 History of Presen t illness Narrative Pt. Fit for wrist cockup brace on right and instructed on its use. Vishnu Silva Chief complaint: Follow-up right wrist and proximal humerus. History of present illness: Patient returns today following her right proximal humerus and distal radius fracture. Both being treated conservatively. She has been in a cast. She is almost 4 weeks from her injury. Having more soreness in her right shoulder. For the patient's past medical history, past surgical history, medications, allergies, family history, social history, and review of systems please refer to medical history in chart. Physical exam: The patient is alert and oriented no acute distress. Answers questions appropriately. Has a normal affect. Examination right upper extremity shows it to be neurovasc intact. She is able to flex and extend all digits including thumb. Able to range right elbow. Humeral shaft and proximal humerus move as a unit. No open wounds. Imaging: Please refer to the radiographic interpretation Assessment: #1 right proximal humerus fracture. #2 right intra-articular distal radius fracture. Plan at this time she is doing well. We will place her in a wrist cock up brace. She is to wear this majority of the time. We discussed gentle pendulum exercises as well as elbow range of motion exercises. I will see her back in 3 weeks for repeat evaluation. We did discuss osteoporosis. She states she was not interested in scheduling for this at this time. She will continue with her vitamin D supplementation. I will see her back in 3 weeks. If is any questions or concerns prior to the next encounter, she will contact the office. Questions answered. Will continue to monitor patient for Other closed intra-articular fracture of distal end of right radius with routine healing, subsequent encounter (primary encounter diagnosis) Other closed displaced fracture of proximal end of right humerus with routine healing, subsequent encounter, patient to schedule visit as per follow up discussed. documented in this encounter [facility] 08-17-2024 Note HNO ID: [id number] Author: LALIT MEADE MD Service: ? Author Type: Physician Type: Progress Notes Filed: 08/17/2024 15:24 Note Text: Chief complaint: Follow-up right wrist and proximal humerus. History of present illness: Patient returns today following her right proximal humerus and distal radius fracture. Both being treated conservatively. She has been in a cast. She is almost 4 weeks from her injury. Having more soreness in her right shoulder. For the patient's past medical history, past surgical history, medications, allergies, family history, social history, and review of systems please refer to medical history in chart. Physical exam: The patient is alert and oriented no acute distress. Answers questions appropriately. Has a normal affect. Examination right upper extremity shows it to be neurovasc intact. She is able to flex and extend all digits including thumb. Able to range right elbow. Humeral shaft and proximal humerus move as a unit. No open wounds. Imaging: Please refer to the radiographic interpretation Assessment: #1 right proximal humerus fracture. #2 right intra-articular distal radius fracture. Plan at this time she is doing well. We will place her in a wrist cock up brace. She is to wear this majority of the time. We discussed gentle pendulum exercises as well as elbow range of motion exercises. I will see her back in 3 weeks for repeat evaluation. We did discuss osteoporosis. She states she was not interested in scheduling for this at this time. She will continue with her vitamin D supplementation. I will see her back in 3 weeks. If is any questions or concerns prior to the next encounter, she will contact the office. Questions answered. Will continue to monitor patient for Other closed intra-articular fracture of distal end of right radius with routine healing, subsequent encounter (primary encounter diagnosis) Other closed displaced fracture of proximal end of right humerus with routine healing, subsequent encounter, patient to schedule visit as per follow up discussed. [facility] 08-09-2024 Telephone encounter Note Pt not interested in scheduling for osteoporosis. Symone Bain August 09, 2024 10:17 AM [facility] 08-09-2024 Miscellaneous Notes Pt not interested in scheduling for osteoporosis. Symone Bain August 09, 2024 10:17 AM LVM to schedule pt for osteoporosis referral for Shima Eaton CNP. Schedule from the workque if pt calls back. Symone Bain August 04, 2024 1:53 PM documented in this encounter [facility] 08-04-2024 Telephone encounter Note LVM to schedule pt for osteoporosis referral for Shima Eaton CNP. Schedule from the workque if pt calls back. Symone Bain August 04, 2024 1:53 PM [facility] 07-27-2024 Note HNO ID: [id number] Author: CARRI CARRION MA Service: ? Author Type: Pallet Assembler Type: Progress Notes Filed: 07/27/2024 14:45 Note Text: PT ASSESSMENT - CASTING ROOM Mercedez presents for Application of cast. Applied/Re-applied Short Arm Cast to Right arm Patient has been instructed in The patient and/or family member have been instructed in the following: Do not get cast wet, or place/stick anything inside the cast. Care of cast.. Patient is in extreme pain during application of cast. Patient to keep follow up appointment as scheduled. Carri Carrion MA [facility] 07-27-2024 History of Presen t illness Narrative PT ASSESSMENT - CASTING ROOM Mercedez presents for Application of cast. Applied/Re-applied Short Arm Cast to Right arm Patient has been instructed in The patient and/or family member have been instructed in the following: Do not get cast wet, or place/stick anything inside the cast. Care of cast.. Patient is in extreme pain during application of cast. Patient to keep follow up appointment as scheduled. Carri Carrion MA Chief complaint: Right wrist and shoulder pain. History of present illness: The patient is a 69-year-old hikne-fdij-zsesnkjk female who comes in today after sustaining a fall while trimming her rosebushes. She states she was standing on a retaining wall and fell backwards. She struck her wrist and shoulder. Went to the emergency department found to have a distal radius fracture as well as proximal humerus fracture. She was placed in a splint as well as a sling. She presents today for evaluation and management. Denies any other significant injuries. For the patient's past medical history, past surgical history, medications, allergies, family history, social history, and review of systems please refer to medical history in chart. Physical exam: The patient is alert and oriented no acute distress. Answers questions appropriate. Has a normal affect. Examination of right upper extremity shows it to be neurovascularly intact. She can flex and extend all digits including thumb. Swelling and ecchymosis present upper arm. Swelling present distally. No open wounds. Compartments soft and compressible. No tenderness to palpation about the elbow. Imaging: Please refer to the radiographic interpretation Assessment: #1 right intra-articular distal radius fracture. #2 right proximal humerus fracture. Plan: At this time we will treat both of these injuries conservatively. Sling to right upper extremity for her shoulder. We will place her in a short arm cast. We discussed the usage of vitamin D. I will place a referral to the osteoporosis center. We discussed elbow and digital range of motion. I will see her back in 3 weeks for repeat evaluation and removal of her cast. If there is any questions or concerns prior to the next encounter, they will contact the office. Questions answered. Will continue to monitor patient for Other closed displaced fracture of proximal end of right humerus, initial encounter (primary encounter diagnosis) Other closed intra-articular fracture of distal end of right radius, initial encounter, patient to schedule visit as per follow up discussed. documented in this encounter [facility] 07-27-2024 Note HNO ID: [id number] Author: LALIT MEADE MD Service: ? Author Type: Physician Type: Progress Notes Filed: 07/27/2024 14:30 Note Text: Chief complaint: Right wrist and shoulder pain. History of present illness: The patient is a 69-year-old [id number] female who comes in today after sustaining a fall while trimming her rosebushes. She states she was standing on a retaining wall and fell backwards. She struck her wrist and shoulder. Went to the emergency department found to have a distal radius fracture as well as proximal humerus fracture. She was placed in a splint as well as a sling. She presents today for evaluation and management. Denies any other significant injuries. For the patient's past medical history, past surgical history, medications, allergies, family history, social history, and review of systems please refer to medical history in chart. Physical exam: The patient is alert and oriented no acute distress. Answers questions appropriate. Has a normal affect. Examination of right upper extremity shows it to be neurovascularly intact. She can flex and extend all digits including thumb. Swelling and ecchymosis present upper arm. Swelling present distally. No open wounds. Compartments soft and compressible. No tenderness to palpation about the elbow. Imaging: Please refer to the radiographic interpretation Assessment: #1 right intra-articular distal radius fracture. #2 right proximal humerus fracture. Plan: At this time we will treat both of these injuries conservatively. Sling to right upper extremity for her shoulder. We will place her in a short arm cast. We discussed the usage of vitamin D. I will place a referral to the osteoporosis center. We discussed elbow and digital range of motion. I will see her back in 3 weeks for repeat evaluation and removal of her cast. If there is any questions or concerns prior to the next encounter, they will contact the office. Questions answered. Will continue to monitor patient for Other closed displaced fracture of proximal end of right humerus, initial encounter (primary encounter diagnosis) Other closed intra-articular fracture of distal end of right radius, initial encounter, patient to schedule visit as per follow up discussed. [facility] 07-27-2024 History of Presen t illness Narrative DATE OF SERVICE: 07/27/2024 PATIENT NAME: Mercedez Barba : 1955 AGE: 69 y.o. CLINIC NUMBER: [id number] Visit type: Established patient Chief Complaint Patient presents with Follow-up [facility]-02/24/2024,ZB Subjective HISTORY OF PRESENT ILLNESS: This is a 69 y.o. female who presents for a follow up of intrinsic atopic dermatitis and stasis dermatitis/varicose veins. She has been wearing compression stockings regularly and this has helped immensely; last seen 02/24/2024. Patient recently fractured her right arm in a fall, but thankfully she does not need surgery. F/u- intrinsic Atopic dermatitis Admits flaring since last visit. Currently treating with: -triamcinolone 0.1% ointment Denies current flares Denies redness, flaking, scaling, and bleeding. Denies fissures and blisters. Denies itching, burning, pain. C/o-rash located on the top of legs, back and face x 2 months. She has a history of eczema since she was a child. Patient states the rash is new. Patient reports previously her face blistered like a cold core Admits itching Admits spreading to back and face, started on top of thigh. Denies new personal products. Denies new medications/supplements or changes in medications/supplements size, shape, color. Denies recent illness/fever. Denies anyone in the same house with similar rash. Admits previous treatment. -triamcinolone, gold cisneros cerave. Patient reports triamcinolone didn't help Currently using kirks soap wash, gold cisneros lotion and all free and clear. laundry detergent. Cerave helps a little F/u-stasis derm/varicose veins to both legs Improved since last visit. Currently treating with: -triamcinolone 0.1% ointment -compression stockings Denies flares, significantly improved History of pacemaker/ defibrillator? No History of HIV/ Hep C? No Allergies to Lidocaine, Epinephrine, Latex or Adhesive? No Review of Systems Orders Placed This Encounter Medications tacrolimus (Protopic) 0.1 % ointment Sig: Apply to affected areas BID. Dispense: 60 g Refill: 11 Vitals: 07/27/24 1146 BP: 119/76 Pulse: 77 Temp: 36.3 C (97.4 F) PHYSICAL EXAM GENERAL APPEARANCE: alert & oriented x3, pleasant. Well developed, well nourished. PSYCH: appropriate mood and affect DERMATOLOGY: (all measurements are in cm, unless otherwise noted) 1. Intrinsic atopic dermatitis Head - Anterior (Face), Left Thigh - Anterior Red, scaly patches [x]Chronic []Acute []Stable [x]Flaring/Exacerbation Educated and reassured. Treatment options, risks, benefits, and expectations reviewed. Start: - Tacrolimus 0.1% ointment- Apply topically BID Pt. Advised that sunlight is therapeutic for eczema and was advised to sit in the sun for 10-20 minutes daily, weather-permitting 2. Stasis dermatitis Left Lower Leg - Anterior, Right Lower Leg - Anterior Shins are clear, previous rash has resolved [x]Chronic []Acute [x]Stable []Flaring/Exacerbation - Educated and reassured. Treatment options, risks, benefits, and expectations reviewed. Significantly improved. Continue regular use of compression stockings Continue: - Triamcinolone 0.1% cream- Apply to affected areas BID prn itching/rash. Pt. Advised to apply a fragrance-free moisturizer to the affected areas bid. Risks associated with rat exterminator topical steroid use reviewed in detail. Patient was advised that topical steroid is being used for short term relief and not as maintenance. Overuse of topical steroids can result in permanent skin thinning/atrophy, skin discoloration, unwanted hair growth, acne and/or stretch kee/striae. Related Medications triamcinolone (Kenalog) 0.1 % cream APPLY TO AFFECTED AREAS TWICE DAILY UNTIL CLEAR Follow up in about 6 months (around 01/26/2025) for Eczema f/u. Dinorah Chow MD 07/27/24 8:16 AM REFERRING MD: documented in this encounter [facility] 07-26-2024 Telephone encounter Note Left message for patient to call office to schedule an appointment. Office number provided for return call. Enid Farnsworth July 26, 2024 8:40 AM [facility] 07-26-2024 Miscellaneous Notes Left message for patient to call office to schedule an appointment. Office number provided for return call. Enid Farnsworth July 26, 2024 8:40 AM documented in this encounter [facility] Evaluation note Diagnosis Intrinsic atopic dermatitis- Primary Stasis dermatitis Varicose veins of lower extremities with inflammation [facility] Diagnosis Other closed displaced fracture of proximal end of right humerus, initial encounter- Primary Other closed intra-articular fracture of distal end of right radius, initial encounter Age-related osteoporosis with current pathological fracture, initial encounter documented in this encounter [facility] note* Diagnosis Other closed intra-articular fracture of distal end of right radius with routine healing, subsequent encounter- Primary Other closed displaced fracture of proximal end of right humerus with routine healing, subsequent encounter [facility] Diagnosis Other closed intra-articular fracture of distal end of right radius with routine healing, subsequent encounter- Primary Other closed displaced fracture of proximal end of right humerus with routine healing, subsequent encounter documented in this encounter [facility] Summary Purpose Family History No Family History Records FoundNo Family History Records FoundNo Family History Records FoundNo Family History Records Found Advance Directives No Advanced Directives Records FoundDocuments on File Type Date Recorded 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 Source Comments (unrecognize d section and content) In the event this informatio n is protected by the Federal Confidentiality of Alcohol and Drug Abuse Patient Records regulations: The Federal rules restrict any use of the information to criminally investigate or prosecute any alcohol or drug abuse patient.[facility] the event this information is protected by the Federal Confidentiality of Alcohol and Drug Abuse Patient Records regulations: The Federal rules restrict any use of the information to criminally investigate or prosecute any alcohol or drug abuse patient.[facility] the event this information is protected by the Federal Confidentiality of Alcohol and Drug Abuse Patient Records regulations: The Federal rules restrict any use of the information to criminally investigate or prosecute any alcohol or drug abuse patient.[facility] the event this information is protected by the Federal Confidentiality of Alcohol and Drug Abuse Patient Records regulations: The Federal rules restrict any use of the information to criminally investigate or prosecute any alcohol or drug abuse patient.[facility] the event this information is protected by the Federal Confidentiality of Alcohol and Drug Abuse Patient Records regulations: The Federal rules restrict any use of the information to criminally investigate or prosecute any alcohol or drug abuse patient.[facility] the event this information is protected by the Federal Confidentiality of Alcohol and Drug Abuse Patient Records regulations: The Federal rules restrict any use of the information to criminally investigate or prosecute any alcohol or drug abuse patient.[facility] the event this information is protected by the Federal Confidentiality of Alcohol and Drug Abuse Patient Records regulations: The Federal rules restrict any use of the information to criminally investigate or prosecute any alcohol or drug abuse patient.[facility] the event this information is protected by the Federal Confidentiality of Alcohol and Drug Abuse Patient Records regulations: The Federal rules restrict any use of the information to criminally investigate or prosecute any alcohol or drug abuse patient.[facility] Reason for Visit (unrecogniz ed section and content) Reason Comments Appointment Reason Comments Follow-up [facility]-02/24/2024,ZB Reason Comments New Having some pain and swelling, certain movements cause a sharp pain. Pain Having some pain and swelling, certain movements cause a sharp pain. Fracture Having some pain and swelling, certain movements cause a sharp pain. ER F/U Having some pain and swelling, certain movements cause a sharp pain. Swelling Having some pain and swelling, certain movements cause a sharp pain. Reason Comments Appointment Osteoporosis referra l Reason Comments Established Patient Pain Reason Comments Patient Question Reason Comments Established Patient Reason Comments Established Patient Radius Pain dependin g on movement Denies any new injuries/falls Follow Up Radius Pain dependin g on movement Denies any new injuries/falls Care Teams (unrecognized sec tion and content) Felt Hat Flanging Operator Relationship Specialty Start Date End Date Tigre Hernandez DO [address] [place] [id number] Referring Obstetrics 09/05/16 Felt Hat Flanging Operator Relationship Specialty Start Date End Date Tigre Hernandez DO [address] [place] [id number] Referring Obstetrics 09/05/16 Felt Hat Flanging Operator Relationship Specialty Start Date End Date Tigre Hernandez DO [address] [place] [phone] Referring Obstetrics 09/05/16 Felt Hat Flanging Operator Relationship Specialty Start Date End Date Tigre Hernandez DO [address] [place] [address] Referring Obstetrics 09/05/16 FOR RECORDS PERTAINING TO PATIENTS WHO ARE OR HAVE BEEN ENROLLED IN A CHEMICAL DEPENDENCY/SUBSTANCEABUSE PROGRAM, SOME INFORMATION MAY BE OMITTED. This clinical summary was aggregated from multiple sources. Caution should be exercised in using it in the provision of clinical care. This summary normalizes information from multiple sources, and as a consequence, information in this document may materially change the coding, format and clinical context of patient data. In addition, data may be omitted in some cases. CLINICAL DECISIONS SHOULD BE BASED ON THE PRIMARY CLINICAL RECORDS. [facility]. provides no warranty or guarantee of the accuracy or completeness of information in this document.
[2024-12-30 22:57] LABS: Hematocrit 37.2 % (37-47); Hemoglobin 12.2 g/dL (12.0-15.0); Immature Granulocytes Count 0.010 X10^3/uL (0.0-0.0); Mean Corp Hgb Conc 32.8 g/dL (32-36); Mean Corpuscular Volume 90.3 fL (81-99); Mean Platelet Vol. 11.4 fl (6.2-12.0); NRBC Flagged by Analyzer 0 % (0-5); Platelet Count 354 K/mm3 (150-450); RBC Distribution Width CV 12.7 % (11.6-14.6); RBC Distribution Width SD 42.1 fl (35.1-43.9); Red Blood Count 4.12 M/mm3 (4.2-5.4); White Blood Count 6.0 K/mm3 (4.4-11.0)
[2024-12-30 23:21] LABS: AST(SGOT) 22 U/L (<=31); Alanine Aminotransfer ALT/SGPT 26 U/L (<=34); Albumin, Serum 4.1 g/dL (3.4-4.8); Alkaline Phosphatase 151 U/L (35-104); Anion Gap 12 (5-15); BUN 12 mg/dL (4-19); BUN/Creat Ratio 17.0 RATIO (10-20); CORTISOL PM 6.58 ug/dL (2.68-10.50); Calcium,Total 11.1 mg/dL (7.6-11.0); Carbon Dioxide 23.8 mmol/L (21.0-32.0); Chloride 103 mmol/L (98-108); Globulin 3.6 g/dL (2.2-4.2); Glucose 97 mg/dL (70-99); Potassium 4.3 mmol/L (3.3-5.1)
[2024-12-30 23:46] LABS: CRP 65.30 mg/L (0.0-3.0)
[2024-12-31 00:36] LABS: PTHIN 53 pg/mL (11-61)
[2025-01-03 15:08] LABS: Anti-Chromatin <0.2 AI (0.0-0.9); Anti-Jo <0.2 AI (0.0-0.9); Anti-dsDNA Ab <1 IU/mL (0-9); SJOGREN'S Anti-SS-A test < 0.2 AI (0.0-0.9); SJOGREN'S Anti-SS-B test < 0.2 AI (0.0-0.9)
== END | disposition home or self-care (01) ==
PROVIDERS: PCP Nurse Practitioner; Referring Provider Nurse Practitioner; Visit Provider Nurse Practitioner
DX: L93.2 Other local lupus erythematosus (principal); M25.541 Pain in joints of right hand; M25.542 Pain in joints of left hand; M79.89 Other specified soft tissue disorders; M25.569 Pain in unspecified knee; M25.579 Pain in unspecified ankle and joints of unspecified foot; R26.2 Difficulty in walking, not elsewhere classified; S90.466A Insect bite (nonvenomous), unspecified lesser toe(s), initial encounter; W57.XXXA Bitten or stung by nonvenomous insect and other nonvenomous arthropods, initial encounter
CPT/HCPCS: 80053; 82533; 83970; 85025; 86140; 86225; 86235; 86431; 86617